=== PATIENT | male | born 1960 | race Caucasian/White ===

== ENCOUNTER → 2021-10-06 02:54 | Outpatient (CLI) | payer MEDICARE, OTHER, SELFPAY ==
[2021-10-06 12:07] LABS: SARS-CoV-2 RNA PCR Positive
== END ==
PROVIDERS: PCP Nurse Practitioner; Visit Provider Nurse Practitioner
DX: U07.1 COVID-19 (principal)
CPT/HCPCS: C9803; U0003; U0005

== ENCOUNTER 2021-10-30 13:43 | Outpatient (CLI) | payer MEDICARE, OTHER, SELFPAY ==
[2021-10-30 20:29] LABS: Free T4 Free Thyroxine 1.02 ng/mL (0.78-2.19)
[2021-10-30 20:40] LABS: Thyroid Stimulating Hormone 0.115 uIU/mL (0.465-4.680)
== END 2021-10-30 13:44 | disposition home or self-care (01) ==
LOC: ANHGOSHLAB 13:47
PROVIDERS: PCP Internal Medicine; Visit Provider Clinical Nurse Specialist
DX: E03.9 Hypothyroidism, unspecified (principal)
CPT/HCPCS: 36415; 84439; 84443

== ENCOUNTER 2021-12-15 12:40 | Outpatient (CLI) | payer MEDICARE, OTHER, SELFPAY ==
[2021-12-15 20:16] LABS: Thyroid Stimulating Hormone 0.259 uIU/mL (0.465-4.680)
== END 2021-12-15 12:41 | disposition home or self-care (01) ==
PROVIDERS: PCP Internal Medicine; Visit Provider Clinical Nurse Specialist
DX: E03.9 Hypothyroidism, unspecified (principal)
CPT/HCPCS: 36415; 84443

== ENCOUNTER 2022-02-13 15:10 | Outpatient (CLI) | payer MEDICARE, OTHER, SELFPAY ==
[2022-02-13 17:18] LABS: Creatinine Urine 90.6 mg/dL
[2022-02-13 17:22] LABS: Hemoglobin A1C 5.9 % (<5.7)
[2022-02-13 17:25] LABS: MALB Creatinine Ratio < 6.6 mg/g (0-30); Microalbumin Urine Random < 6.0 mg/L (0-16.7)
[2022-02-13 17:32] LABS: Free T4 Free Thyroxine 0.81 ng/mL (0.78-2.19)
== END 2022-02-13 15:11 | disposition home or self-care (01) ==
LOC: ANHWCLAB 15:13
PROVIDERS: PCP Internal Medicine; Visit Provider Internal Medicine Endocrinology, Diabetes & Metabolism
DX: E03.9 Hypothyroidism, unspecified (principal); E11.9 Type 2 diabetes mellitus without complications
CPT/HCPCS: 36415; 82043; 83036; 84439; 84443

== ENCOUNTER 2022-03-20 12:00 | Outpatient (CLI) | payer MEDICARE, OTHER, SELFPAY ==
[2022-03-20 18:03] LABS: Thyroid Stimulating Hormone 0.018 uIU/mL (0.465-4.680)
[2022-03-20 19:54] LABS: Free T4 Free Thyroxine 2.19 ng/mL (0.78-2.19)
== END 2022-03-20 12:01 | disposition home or self-care (01) ==
LOC: ANHWCLAB 12:03
PROVIDERS: PCP Internal Medicine; Visit Provider Internal Medicine Endocrinology, Diabetes & Metabolism
DX: E03.9 Hypothyroidism, unspecified (principal)
CPT/HCPCS: 36415; 84439; 84443

== ENCOUNTER 2022-04-26 09:27 | Outpatient (CLI) | payer MEDICARE, OTHER, SELFPAY ==
[2022-04-26 20:19] LABS: Thyroid Stimulating Hormone < 0.015 uIU/mL (0.465-4.680)
[2022-04-26 20:41] LABS: Free T4 Free Thyroxine 1.95 ng/mL (0.78-2.19)
== END 2022-04-26 09:28 | disposition home or self-care (01) ==
LOC: ANHGOSHLAB 09:29
PROVIDERS: PCP Internal Medicine; Referring Provider Internal Medicine Endocrinology, Diabetes & Metabolism; Visit Provider Clinical Nurse Specialist
DX: E03.9 Hypothyroidism, unspecified (principal); E78.5 Hyperlipidemia, unspecified
CPT/HCPCS: 36415; 84439; 84443

== ENCOUNTER 2022-05-28 12:34 | Outpatient (CLI) | payer MEDICARE, OTHER, SELFPAY ==
[2022-05-28 20:36] LABS: Free T4 Free Thyroxine 1.51 ng/mL (0.78-2.19)
[2022-05-28 21:05] LABS: Thyroid Stimulating Hormone 0.838 uIU/mL (0.465-4.680)
== END 2022-05-28 12:35 | disposition home or self-care (01) ==
LOC: ANHGOSHLAB 12:40
PROVIDERS: PCP Internal Medicine; Visit Provider Internal Medicine Endocrinology, Diabetes & Metabolism
DX: E03.9 Hypothyroidism, unspecified (principal); E78.5 Hyperlipidemia, unspecified
CPT/HCPCS: 36415; 84439; 84443

== ENCOUNTER 2022-06-20 09:31 | Outpatient (CLI) | payer MEDICARE, OTHER, SELFPAY ==
[2022-06-20 18:57] LABS: Free T4 Free Thyroxine 1.46 ng/mL (0.78-2.19)
[2022-06-20 19:33] LABS: Anion Gap 6 mmol/L (8-16); Blood Urea Nitrogen 18 mg/dL (9-20); Carbon Dioxide 28 mmol/L (22-30); Chloride 103 mmol/L (98-107); Cholesterol 183 mg/dL (0-200); Estimated Glomerular Filt Rate > 60; Glucose 149 mg/dL (65-110); HDL Direct 61 mg/dL; Sodium 137 mmol/L (137-145); Triglycerides 189 mg/dL (<150)
[2022-06-20 19:44] LABS: LDL Cholesterol Direct 87 mg/dL
== END 2022-06-20 09:32 | disposition home or self-care (01) ==
LOC: ANHGOSHLAB 09:34
PROVIDERS: PCP Internal Medicine; Visit Provider Internal Medicine Endocrinology, Diabetes & Metabolism
DX: E03.9 Hypothyroidism, unspecified (principal); E11.9 Type 2 diabetes mellitus without complications
CPT/HCPCS: 36415; 80048; 80061; 84439; 84443

== ENCOUNTER 2022-12-24 10:23 | Outpatient (CLI) | payer MEDICARE, OTHER, SELFPAY ==
[2022-12-24 19:35] LABS: Microalbumin Urine Random 24.9 mg/L (0-16.7)
[2022-12-24 19:52] LABS: Creatinine Urine 363.7 mg/dL; MALB Creatinine Ratio 6.8 mg/g (0-30)
[2022-12-24 19:59] LABS: Alanine Aminotransferase 55 U/L (6-50); Albumin Level 4.3 g/dL (3.5-5.1); Alkaline Phosphatase 61 U/L (38-126); Anion Gap 5 mmol/L (8-16); Aspartate Amino Transferase 85 U/L (17-59); Bilirubin,Total 1.1 mg/dL (0.2-1.3); Blood Urea Nitrogen 16 mg/dL (9-20); Calcium 9.2 mg/dL (8.4-10.2); Carbon Dioxide 30 mmol/L (22-30); Chloride 100 mmol/L (98-107); Cholesterol 188 mg/dL (0-200); Estimated Glomerular Filt Rate > 60; Glucose 157 mg/dL (65-110); HDL Direct 58 mg/dL; Potassium 4.4 mmol/L (3.4-5.0); Sodium 135 mmol/L (137-145); Triglycerides 229 mg/dL (<150)
[2022-12-24 20:02] LABS: Free T4 Free Thyroxine 1.55 ng/mL (0.78-2.19)
[2022-12-24 20:06] LABS: Prostate Specific Antigen 0.3 ng/mL (< OR = 4.0)
[2022-12-24 20:10] LABS: LDL Cholesterol Direct 91 mg/dL
== END 2022-12-24 10:24 | disposition home or self-care (01) ==
LOC: ANHGOSHLAB 10:26
PROVIDERS: Nurse Practitioner; PCP Internal Medicine; Visit Provider Internal Medicine Endocrinology, Diabetes & Metabolism
DX: E03.9 Hypothyroidism, unspecified (principal); E11.9 Type 2 diabetes mellitus without complications; E78.5 Hyperlipidemia, unspecified; Z12.5 Encounter for screening for malignant neoplasm of prostate
CPT/HCPCS: 36415; 80053; 80061; 82043; 84153; 84439; 84443; G0103

== ENCOUNTER 2023-02-20 02:11 | Day surgery (SDC) | payer MEDICARE, OTHER, SELFPAY ==
[2023-02-05 14:51] VITALS: BMI 43.9
--- NOTE | 2023-02-18 09:19 | SUR.PREOP ---
Patient called regarding upcoming procedure. Reviewed preop instructions, appointment times, and procedure prep.
--- NOTE | 2023-02-19 13:26 | PM.HPGS ---
History of Present Illness History of Present Illness Consent: Risks, benefits, and alternatives have been discussed and questions answered. Patient agrees to proceed with procedure. Chief complaint: hx colon polyps Narrative: Wally Hankins is a 62 year old male with history of colon polyps. He has had a polyp removed on his 2 last procedures were. His last colonoscopy was 5 years ago. Review of Systems Review of Systems: All systems reviewed & are unremarkable except as noted in HPI and below PMFSH Past Medical History Medical History Anal disorder Arthritis Body mass index (BMI) 35 or more (07/29/18) Chronic bilateral low back pain with right-sided sciatica Chronic bronchitis Chronic pain Colon polyps Constipation Decreased libido Depression Dizziness Elevated ferritin Erectile dysfunction Essential hypertension Herniated disc Hyperlipidemia Hypertension Hypothyroidism Lumbar radiculopathy Lumbar spondylosis Morbid obesity Parapharyngeal abscess 10/08/2017 removed Polycythemia Rheumatism Stenosis (acquired) of bladder neck or vesicourethral orifice Transaminitis Type 2 diabetes mellitus Surgical History Surgical History H/O lumbar discectomy L4-L5 2002 Hx of tonsillectomy 1968 Family History Family History Mother CHF (congestive heart failure) Diabetes mellitus Hypertension Heart problem Depression Son CHF (congestive heart failure) Diabetes mellitus Sibling , brother CHF (congestive heart failure) COPD (chronic obstructive pulmonary disease) brother Asthma brother Diabetes mellitus Hypertension Depression Heart problem Grandparent Hypertension Heart problem Acute myocardial infarction Other Diabetes mellitus aunt Social History Social History Smoking packs per day: 1 Smoking cigarettes per day: 20.0 Years smoked: 6 Smoking pack-years: 6.00 Smoking status: Former smoker Tobacco type: cigarettes Alcohol intake: current Drinks per week: 30 Alcohol use details: 10 beers 3 days a week Substance use: current Substance use type: marijuana Other substance usage details: MMJ; 1-2 times daily Lack of Transportation: No Lack of Food: Never True Current Housing: I Have Housing Concerned About Future Housing: No Difficulty Paying Gas/Electric Bills: No Difficulty Paying for Meds: No Currently Unemployed: No Education: High School Diploma/GED Difficulty w/ Childcare or Family Care: No Living arrangements: with family Occupation/Education: retired Spiritual care concerns: No Agree to blood products: Yes Meds Home Medications and Allergies Home Medications Medication Instructions Recorded Confirmed Type sildenafil 50 mg tablet 50 mg PO DAILY PRN sexual activity 05/08/21 02/20/23 Rx #10 tabs cannabidiol 100 mg/mL oral solution 10 mg PO DAILY PRN Pain 04/30/22 02/20/23 History triamcinolone acetonide 0.5 % 1 applic topical DAILY #15 grams 05/23/22 02/20/23 Rx topical cream valsartan 160 mg tablet 160 mg PO DAILY #90 tabs 10/31/22 02/20/23 Rx levothyroxine 150 mcg tablet 150 mcg PO DAILY #90 tabs 12/31/22 02/20/23 Rx Allergies Allergy/AdvReac Type Severity Reaction Status Date / Time fentanyl Allergy Unknown vomiting Verified 02/20/23 08:16 semaglutide [From Ozempic] Allergy Rash Verified 02/20/23 08:16 morphine AdvReac Severe GI UPSET Verified 02/20/23 08:16 empagliflozin AdvReac Unknown yeast Verified 02/20/23 08:16 [From Jardiance] infection metformin AdvReac Unknown Diarrhea Verified 02/20/23 08:16 Exam Const: General: alert Orientation/consciousness: patient oriented x3 Resp: Auscultation: clear to auscultation bilaterally Cardio: R
[2023-02-20 08:19] VITALS: BP 165/82; PULSE 72; RESP 18; TEMP 36.2; O2SAT 96
[2023-02-20] MEDS: LACTATED RINGERS 1,000 ML 150 ML IV CONT (08:25)
--- NOTE | 2023-02-20 08:58 | WPDANESEPPF ---
Anes - Initial Pre Proc Eval Procedure: Operation Date: 02/20/23 09:30 Proposed Procedures p Colonoscopy - Brian Carolina MD Date/Time: 02/20/23 08:58 Surgeon: Brian Carolina MD Pre Op Diagnosis: hx colon polyps Patient Data Age: 62 Gender: M Height: 1.88 m Weight: 155.6 kg Last Vital Signs Temp 97.2 F L 02/20/23 08:19 Pulse 72 02/20/23 08:19 Resp 18 02/20/23 08:19 BP 165/82 H 02/20/23 08:19 Pulse Ox 96 02/20/23 08:19 O2 Del Method Room Air 02/20/23 08:19 Allergies Allergy/AdvReac Type Severity Reaction Status Date / Time fentanyl Allergy Unknown vomiting Verified 02/20/23 08:16 semaglutide [From Ozempic] Allergy Rash Verified 02/20/23 08:16 morphine AdvReac Severe GI UPSET Verified 02/20/23 08:16 empagliflozin AdvReac Unknown yeast Verified 02/20/23 08:16 [From Jardiance] infection metformin AdvReac Unknown Diarrhea Verified 02/20/23 08:16 Home Medications Medication Instructions Recorded Confirmed Type sildenafil 50 mg tablet 50 mg PO DAILY PRN sexual activity 05/08/21 02/20/23 Rx #10 tabs cannabidiol 100 mg/mL oral solution 10 mg PO DAILY PRN Pain 04/30/22 02/20/23 History triamcinolone acetonide 0.5 % 1 applic topical DAILY #15 grams 05/23/22 02/20/23 Rx topical cream valsartan 160 mg tablet 160 mg PO DAILY #90 tabs 10/31/22 02/20/23 Rx levothyroxine 150 mcg tablet 150 mcg PO DAILY #90 tabs 12/31/22 02/20/23 Rx Patient hx anesthesia problems: none Family hx anesthesia problems: none Results Review: All pre-operative results and documents have been reviewed as part of the pre-operative evaluation. [facility] Past Medical History Medical History Anal disorder Arthritis Body mass index (BMI) 35 or more (07/29/18) Chronic bilateral low back pain with right-sided sciatica Chronic bronchitis Chronic pain Colon polyps Constipation Decreased libido Depression Dizziness Elevated ferritin Erectile dysfunction Essential hypertension Herniated disc Hyperlipidemia Hypertension Hypothyroidism Lumbar radiculopathy Lumbar spondylosis Morbid obesity Parapharyngeal abscess 10/08/2017 removed Polycythemia Rheumatism Stenosis (acquired) of bladder neck or vesicourethral orifice Transaminitis Type 2 diabetes mellitus Surgical History Surgical History H/O lumbar discectomy L4-L5 2002 Hx of tonsillectomy 1968 Family History Family History Mother CHF (congestive heart failure) Diabetes mellitus Hypertension Heart problem Depression Son CHF (congestive heart failure) Diabetes mellitus Sibling , brother CHF (congestive heart failure) COPD (chronic obstructive pulmonary disease) brother Asthma brother Diabetes mellitus Hypertension Depression Heart problem Grandparent Hypertension Heart problem Acute myocardial infarction Other Diabetes mellitus aunt Social History Social History Smoking packs per day: 1 Smoking cigarettes per day: 20.0 Years smoked: 6 Smoking pack-years: 6.00 Smoking status: Former smoker Tobacco type: cigarettes Alcohol intake: current Drinks per week: 30 Alcohol use details: 10 beers 3 days a week Substance use: current Substance use type: marijuana Other substance usage details: MMJ; 1-2 times daily Lack of Transportation: No Lack of Food: Never True Current Housing: I Have Housing Concerned About Future Housing: No Difficulty Paying Gas/Electric Bills: No Difficulty Paying for Meds: No Currently Unemployed: No Education: High School Diploma/GED Difficulty w/ Childcare or Family Care: No Living arrangements: with family Occupation/Education: retired Spiritual care concerns: No Agree to blood products:
[2023-02-20 09:41] VITALS: BP 127/69; PULSE 71; RESP 21; O2SAT 98
[2023-02-20 09:51] VITALS: BP 127/69; PULSE 69; RESP 20; O2SAT 98
[2023-02-20 09:58] VITALS: BP 139/82; PULSE 65; RESP 21; O2SAT 100
== END 2023-02-20 10:10 | disposition home or self-care (01) ==
PROVIDERS: PCP Internal Medicine; Visit Provider Internal Medicine Gastroenterology
PROC: 0DJD8ZZ Inspection of Lower Intestinal Tract, Via Natural or Artificial Opening Endoscopic (ICD-10-PCS; CPT 45378; principal; 2023-02-20 09:30)
DX: Z12.11 Encounter for screening for malignant neoplasm of colon (principal); K57.30 Diverticulosis of large intestine without perforation or abscess without bleeding; K64.8 Other hemorrhoids; Z86.010 Personal history of colon polyps; E78.5 Hyperlipidemia, unspecified; E03.9 Hypothyroidism, unspecified; E11.9 Type 2 diabetes mellitus without complications; E66.01 Morbid (severe) obesity due to excess calories; Z68.41 Body mass index [BMI] 40.0-44.9, adult; Z87.891 Personal history of nicotine dependence; F12.90 Cannabis use, unspecified, uncomplicated
CPT/HCPCS: G0105; J2704; J7120

== ENCOUNTER 2023-07-26 09:32 | Outpatient (CLI) | payer MEDICARE, OTHER, SELFPAY ==
[2023-07-26 19:37] LABS: Alanine Aminotransferase 52 U/L (6-50); Albumin Level 4.4 g/dL (3.5-5.1); Alkaline Phosphatase 70 U/L (38-126); Anion Gap 5 mmol/L (4-12); Aspartate Amino Transferase 70 U/L (17-59); Bilirubin,Total 0.9 mg/dL (0.2-1.3); Blood Urea Nitrogen 14 mg/dL (9-20); Calcium 9.2 mg/dL (8.4-10.2); Carbon Dioxide 29 mmol/L (22-30); Chloride 102 mmol/L (98-107); Cholesterol 182 mg/dL (0-200); Estimated Glomerular Filt Rate > 60; Glucose 123 mg/dL (65-110); HDL Direct 64 mg/dL; Potassium 4.5 mmol/L (3.4-5.0); Sodium 136 mmol/L (137-145); Triglycerides 150 mg/dL (<150)
[2023-07-26 19:47] LABS: Free T4 Free Thyroxine 1.53 ng/mL (0.78-2.19)
[2023-07-26 19:48] LABS: LDL Cholesterol Direct 92 mg/dL
== END 2023-07-26 09:33 | disposition home or self-care (01) ==
LOC: ANHGOSHLAB 09:34
PROVIDERS: PCP Internal Medicine; Visit Provider Internal Medicine Endocrinology, Diabetes & Metabolism
DX: E78.5 Hyperlipidemia, unspecified (principal); E66.01 Morbid (severe) obesity due to excess calories; E11.9 Type 2 diabetes mellitus without complications; E03.9 Hypothyroidism, unspecified
CPT/HCPCS: 36415; 80053; 80061; 84439; 84443

== ENCOUNTER 2024-01-12 01:56 | Emergency (ER) | payer MEDICARE, OTHER, SELFPAY ==
--- NOTE | ~2024-01-12 | CT_ITS ---
EXAMINATION: CT cervical spine wo con DATE: 01/12/2024 02:24 INDICATION: Trauma with head injury TECHNIQUE: Computed tomography (CT) of the cervical spine was performed without intravenous contrast. Automated exposure control and iterative reconstruction technique were employed. The dose-length pro duct was 514.82 mGy-cm. COMPARISON: None FINDINGS: 9 degrees cervical levocurvature. Mild reversal of the normal cervical lordosis. Moderate osteoarthri tis at the atlantoaxial articulation. Vertebral body heights are normal. No acute fracture. Severe di sc height loss with fusion across the bilateral uncovertebral joints at C6-C7. Moderate disc height l oss with severe bilateral uncovertebral osteoarthritis at C5-C6 and with minimal uncovertebral osteoa rthritis at C7-T1. Mild disc height loss at C2-C3 through C4-C5 with mild to moderate uncovertebral o steoarthritis. Severe facet osteoarthritis on the right at C2-C3 with multilevel mild to moderate ost eoarthritis throughout the remainder of the bilateral cervical facet joints. Posterior disc osteophyt e complexes contributing to mild to moderate central canal stenosis at both C5-6 and C6-C7. Multileve l mild bilateral cervical neural foraminal stenosis is prominent bilaterally at C5-C6 and on the righ t at C6-C7. Cervical soft tissues are unremarkable. IMPRESSION: 1. Moderate to severe cervical spondylosis. No acute osseous abnormality. Reviewed, dictated and finalized at location A. BBING MACHINE OPERATOR
--- NOTE | ~2024-01-12 | CT_ITS ---
EXAMINATION: CT brain wo con DATE: 01/12/2024 02:24 INDICATION: Head injury TECHNIQUE: Computed tomography (CT) of the head was performed without intravenous contrast. Sagittal and coronal reconstructions were performed. The mA was adjusted according to patient size. Iterative reconstruction technique was employed. The dose-length product was 832.33 mGy-cm. COMPARISON: head CT dated 10/03/2018 FINDINGS: No acute intracranial hemorrhage, acute infarction or abnormal extra axial fluid collection. Mild gen eralized cortical atrophy and mild scattered white matter hypoattenuation consistent with chronic sma ll vessel ischemic disease. Ventricles are normal and symmetric. No mass/mass effect. Mild mucosal th ickening in the bilateral ethmoid and right frontal sinuses. The orbits and mastoid air cells are nor mal. Intracranial calcified cerebral atherosclerosis is noted. IMPRESSION: 1. No acute intracranial process. 2. Chronic age-related changes including mild diffuse volume loss and mild scattered white matter hyp oattenuation consistent with chronic small vessel ischemic disease. Reviewed, dictated and finalized at location A. ER OPERATOR IMPRESSION: 1. No acute intracranial process. 2. Chronic age-related changes including mild diffuse volume loss and mild scat tered white matter hypoattenuation consistent with chronic small vessel ischemi c disease.
[2024-01-12 01:08] VITALS: BP 150/82; PULSE 82; RESP 13; TEMP 36.4; O2SAT 100
--- NOTE | 2024-01-12 02:00 | PC.NURSE ---
this patient has a abrasion to the right side of the face. md notified.
--- NOTE | 2024-01-12 02:04 | ED.GENADULT ---
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 The patient reports that he was drinking 12-15 beers this evening and also reports that he uses medical marijuana. Patient reports that he fell striking his head patient reports that he had some bleeding from his face. Related Data Home Medications Medication Instructions Recorded Confirmed cannabidiol 100 mg/mL oral solution 10 mg PO DAILY PRN Pain 04/30/22 12/09/23 Allergies Allergy/AdvReac Type Severity Reaction Status Date / Time fentanyl Allergy Unknown vomiting Verified 12/09/23 13:02 semaglutide [From Ozempic] Allergy Rash Verified 12/09/23 13:02 morphine AdvReac Severe GI UPSET Verified 12/09/23 13:02 empagliflozin AdvReac Unknown yeast Verified 12/09/23 13:02 [From Jardiance] infection metformin AdvReac Unknown Diarrhea Verified 12/09/23 13:02 Review of Systems Review of Systems: A 10 system review of systems was completed on the patient and is negative except for what is stated in the HPI. Nursing and ancillary documentation was reviewed. [facility] Past Medical History Medical History Anal disorder Arthritis Body mass index (BMI) 35 or more (07/29/18) Chronic bilateral low back pain with right-sided sciatica Chronic bronchitis Chronic pain Colon polyps Constipation Decreased libido Depression Dizziness Elevated ferritin Erectile dysfunction Essential hypertension Herniated disc Hyperlipidemia Hypertension Hypothyroidism Lumbar radiculopathy Lumbar spondylosis Morbid obesity Parapharyngeal abscess 10/08/2017 removed Polycythemia Rheumatism Stenosis (acquired) of bladder neck or vesicourethral orifice Transaminitis Type 2 diabetes mellitus Surgical History Surgical History H/O lumbar discectomy L4-L5 2002 Hx of tonsillectomy 1968 Family History Family History Mother CHF (congestive heart failure) Diabetes mellitus Hypertension Heart problem Depression Son CHF (congestive heart failure) Diabetes mellitus Sibling , brother CHF (congestive heart failure) COPD (chronic obstructive pulmonary disease) brother Asthma brother Diabetes mellitus Hypertension Depression Heart problem Grandparent Hypertension Heart problem Acute myocardial infarction Other Diabetes mellitus aunt Social History Social History Smoking packs per day: 1 Smoking cigarettes per day: 20.0 Years smoked: 6 Smoking pack-years: 6.00 Smoking status: Former smoker Tobacco type: cigarettes Alcohol intake: current Drinks per week: 30 Alcohol use details: 10 beers 3 days a week Substance use: current Substance use type: marijuana Other substance usage details: MMJ; 1-2 times daily Lack of Transportation: No Lack of Food: Never True Current Housing: I Have Housing Concerned About Future Housing: No Difficulty Paying Gas/Electric Bills: No Difficulty Paying for Meds: No Currently Unemployed: No Education: High School Diploma/GED Difficulty w/ Childcare or Family Care: No Living arrangements: with family Occupation/Education: retired Spiritual care concerns: No Agree to blood products: Yes Exam Narrative: GENERAL: Well-appearing, well-nourished, and in no acute distress. HEAD: Normocephalic, there is an abrasion present in the right forehead area/orbital area. EYES: PERRLA and EOMI. ENT: Nares clear, no rhinorrhea or epistaxis. Mucous membranes moist. NECK: Supple. CHEST: Clear to auscultation. No respiratory distress. HEART: Regular rate and rhythm. No murmur heard. Normal peripheral pulses. ABDOMEN: Soft, nontender, nondistended, normal active bowel sounds. EXTREMITIES: Normal range of motion. No edema. SKIN: Warm, dry, no rash. NEURO: No focal deficits. Alert and oriented x3. PSYCH: Normal mood and affect. Course Vital Signs Vital signs: Vital Signs Temperature 36.4 C 01/12/24 01:08 [employer] TE[employer]ER Pulse Rate 82 01/12/24 01:08 [employer] TE[employer]ER Respiratory Rate 13 01/12/24 01:08 [employer] TE[employer]ER Blood Pressure 150/82 H 01/12/24 01:08 E[employer] TEACHER Pulse Oximetry 100 01/12/24 01:08 [employer]MENTARY [employer] TEACHER Oxygen Delivery Room Air 01/12/24 01:08 [employer] TE[employer]ER Temperature 36.4 C 01/12/24 01:08 ELEMENTARY [employer] TE[employer]ER Pulse Rate 82 01/12/24 01:08 [employer]MENT[employer] TE[employer]ER Respiratory Rate 13 01/12/24 01:08 ELE[employer] TE[employer]ER Blood Pressure 150/82 H 01/12/24 01:08 ELEMENTARY [employer] TE[employer]ER Pulse Oximetry 100 01/12/24 01:08 ELE[employer] TEACHER Oxygen Delivery Room Air 01/12/24 01:08 [employer] TE[employer]ER Medical Decision Making MDM Narrative Medical decision making narrative: Differential diagnosis includes intracranial hemorrhage, cervical spine fracture, facial laceration Patient's face was cleaned up there is just superficial abrasions present. CT head CT C-spine showed no acute abnormality Vital Signs Vital Signs: Vital Signs Temperature 36.4 C 01/12/24 01:08 E[employer] TE[employer]ER Pulse Rate 82 01/12/24 01:08 E[employer] TE[employer]ER Respiratory Rate 13 01/12/24 01:08 ELE[employer] TEACHER Blood Pressure 150/82 H 01/12/24 01:08 ELEMENT[employer] TEACHER Pulse Oximetry 100 01/12/24 01:08 ELE[employer] TEACHER Oxygen Delivery Room Air 01/12/24 01:08 ELE[employer] TEACHER Temperature 36.4 C 01/12/24 01:08 ELEMENTARY [employer] MUS[employer] TEACHER Pulse Rate 82 01/12/24 01:08 ELE[employer] TEACHER Respiratory Rate 13 01/12/24 01:08 ELE[employer]ARY [employer] TEACHER Blood Pressure 150/82 H 01/12/24 01:08 ELE[employer]ARY [employer] MUS[employer] TEACHER Pulse Oximetry 100 01/12/24 01:08 ELE[employer] TE[employer]ER Oxygen Delivery Room Air 01/12/24 01:08 E[employer] TE[employer]ER Discharge Plan Discharge Clinical Impression: Fall from ground level, Head injury, Abrasion of face Patient Disposition: Home, Self-Care Condition: Stable Instructions: Antibiotic Form, Head Injury (ED), Abrasion (ED) Additional Instructions: Please avoid combining cannabis and alcohol Prescriptions: No Action triamcinolone acetonide 0.5 % cream 1 applic topical DAILY Qty: 15 1RF levothyroxine 150 mcg tablet 150 mcg PO DAILY Qty: 90 3RF sildenafil 50 mg tablet 50 mg PO DAILY PRN (Reason: sexual activity) Qty: 10 1RF Rx Instructions: administer 30 minutes to 4 hours before activity cannabidiol 100 mg/mL solution 10 mg PO DAILY PRN (Reason: Pain) Rx Instructions: MMJ valsartan 160 mg tablet 160 mg PO DAILY Qty: 90 1RF Follow-up/Referrals: Rc Qiu DO [Primary Care Provider] - Time of Disposition: 02:52
--- NOTE | 2024-01-12 02:59 | PC.NURSE ---
attempted to call patients , no answer.
--- NOTE | 2024-01-12 03:09 | PC.NURSE ---
cab called to transport this patient home. this patient was able to walk w/o any difficulties.
== END 2024-01-12 04:03 | disposition home or self-care (01) ==
PROVIDERS: Emergency Provider Emergency Medicine; PCP Internal Medicine
DX: S00.81XA Abrasion of other part of head, initial encounter (principal); I10 Essential (primary) hypertension; E11.9 Type 2 diabetes mellitus without complications; E78.5 Hyperlipidemia, unspecified; E03.9 Hypothyroidism, unspecified; E66.01 Morbid (severe) obesity due to excess calories; Z68.41 Body mass index [BMI] 40.0-44.9, adult; M19.90 Unspecified osteoarthritis, unspecified site; M79.0 Rheumatism, unspecified; Z86.0100 Personal history of colon polyps, unspecified; Z87.891 Personal history of nicotine dependence; Z79.899 Other long term (current) drug therapy; M47.812 Spondylosis without myelopathy or radiculopathy, cervical region; W19.XXXA Unspecified fall, initial encounter
CPT/HCPCS: 70450; 72125; 99284; L0140

== ENCOUNTER 2024-05-26 10:34 | Outpatient (CLI) | payer MEDICARE, BC, SELFPAY ==
--- OUTSIDE RECORDS SUMMARY | 2024-05-26 11:58 | XMS_ITS | Encounter Summary ---
Author Organization [facility] Address 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
--- OUTSIDE RECORDS SUMMARY | 2024-05-26 11:58 | XMS_ITS | Encounter Summary ---
Author Organization [facility] Address [address] [place] [address] Care Team Providers Care Market Research Consultant Name Role Phone Johnny Barahona DO Primary Care Provider Viridianaa ble Encounter Details Date Type Department Care Team (Late st Contact Info) Description 03/27/2001 Outpatient Historical [facility] Primary Care - [address] [place] [phone] Krzysztof Langston MD [address] [facility] [address] [address] Social History Tobacco Use Types Packs/Day Years Used Date Smoking Tobacco: Never Assessed Sex and Gender Information Value Date Recorded Sex Assigned at Not on file 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
--- OUTSIDE RECORDS SUMMARY | 2024-05-26 11:58 | XMS_ITS | Encounter Summary ---
Author Organization [facility] Address [address] [place] [address] Care Team Providers Care Credit Checker Name Role Phone Johnny Barahona DO Primary Care Provider Viridianaa ble Encounter Details Date Type Department Care Team (Late st Contact Info) Description 02/07/2000 Outpatient Historical [facility] Primary Care - [address] [place] [phone] Krzysztof Langston MD [address] [facility] [address] [address] Social History Tobacco Use Types Packs/Day Years Used Date Smoking Tobacco: Never Assessed Sex and Gender Information Value Date Recorded Sex Assigned at Not on file 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
--- OUTSIDE RECORDS SUMMARY | 2024-05-26 11:58 | XMS_ITS | Encounter Summary ---
Author Organization [facility] Address [address] [place] [address] Care Team Providers Care Investigation Division Captain Name Role Phone Johnny Barahona DO Primary Care Provider Viridianaa ble Encounter Details Date Type Department Care Team (Late st Contact Info) Description 12/24/2000 Outpatient Historical [facility] Primary Care - [address] [place] [phone] Krzysztof Langston MD [address] [facility] [address] [phone] Social History Tobacco Use Types Packs/Day Years Used Date Smoking Tobacco: Never Assessed Sex and Gender Information Value Date Recorded Sex Assigned at Not on file 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
--- OUTSIDE RECORDS SUMMARY | 2024-05-26 11:58 | XMS_ITS | Encounter Summary ---
Author Organization [facility] Address [address] [place] [address] Care Team Providers Care Station Mechanic Apprentice Name Role Phone Johnny Barahona DO Primary Care Provider Grover matute Encounter Details Date Type Department Care Team (Late st Contact Info) Description 12/19/2005 Orders Only [facility] Primary Care - [address] [place] [address] Krzysztof Langston MD [address] [facility] [address] [address] Social History Tobacco Use Types Packs/Day Years Used Date Smoking Tobacco: Never Assessed Sex and Gender Information Value Date Recorded Sex Assigned at Not on file 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 ALTERNATIVE PHONE NUMBER: [phone] SECTION 1: REQUESTED ACTION yoselyn 12/19/05 at 03:49 pm: MEDICATION REQUEST: MEDICATIONS: SYNTHROID ORAL TABLET 125 MCG, 1 Every Day, 90 Dispensed, 3 Fills, 30 Duration/Days Supply, status:CONTINUED, 12/19/2005. pt. requesting a refill; script in hub, and needs signature; .......pt. would like this mailed to his new address at [address] [place], [place] [address] [id number]............./camille DOCTOR`S RESPONSE: vivien 12/19/05 at 04:00 pm please schedule appt for pt to see me in Mar for PE. FINAL ACTION: glorialakishaora 12/19/05 at 04:04 pm Spoke with patient 12/19/05 at 04:04 pm. Booked appointment: pt. scheduled a PE for at 3:15pm did you still want to send pt. his rx? pt. also wants an rx for testosterone; but rx not in emr........./camille SECTION 2: DOCTOR`S RESPONSE: vivien 12/19/05 at 04:23 pm okay to send synthroid. find out what testosterone script he is on. BB SECTION 3: REQUESTED ACTION: mercy 12/19/05 at 04:32 pm using patches-gel he really doesn't like. wants to know if he can give himself inj at home or come into office...........irma DOCTOR`S RESPONSE: vivien 12/19/05 at 04:42 pm we can send out a vial if he can get a monthly injection at home. MEDICATIONS: DEPO-TESTOSTERONE INTRAMUSCULAR OIL 100 MG/ML VIALS, one ml IM q month, 1 Dispensed, 1 Fills, status: NEW PRESCRIPTION, 12/19/2005. FINAL ACTION: yoselyn 12/19/05 at 04:49 pm Spoke with patient 12/19/05 at 04:49 pm. mailed scripts to pt............./camille Electronically Signed by: Camille Colunga on Monday, December 19, 2005 documented in this encounter Plan of Treatment Not on file documented as of this encounter Visit Diagnoses Not on filedocumented in this encounter Care Teams Station Mechanic Apprentice Relationship Specialty Start Date End Date Johnny Barahona DO PCP - General Family Practice 12/09/12 documented as of this encounter
--- OUTSIDE RECORDS SUMMARY | 2024-05-26 11:58 | XMS_ITS | Encounter Summary ---
Author Organization [facility] Address [address] [place] [address] Care Team Providers Care Carbon Dioxide Operator Name Role Phone Johnny Barahona DO Primary Care Provider Viridianaa ble Encounter Details Date Type Department Care Team (Late st Contact Info) Description 10/15/2003 Outpatient Historical [facility] Primary Care - [address] [place] [address] Krzysztof Langston MD [address] [facility] [address] [address] Social History Tobacco Use Types Packs/Day Years Used Date Smoking Tobacco: Never Assessed Sex and Gender Information Value Date Recorded Sex Assigned at Not on file 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
--- OUTSIDE RECORDS SUMMARY | 2024-05-26 11:58 | XMS_ITS | Encounter Summary ---
Author Organization [facility] Address [address] [place] [address] Care Team Providers Care Show Design Supervisor Name Role Phone Johnny Barahona DO Primary Care Provider Viridianaa ble Encounter Details Date Type Department Care Team (Late st Contact Info) Description 06/19/2002 Outpatient Historical [facility] Primary Care - [address] [place] [address] Krzysztof Langston MD [address] [facility] [address] [address] Social History Tobacco Use Types Packs/Day Years Used Date Smoking Tobacco: Never Assessed Sex and Gender Information Value Date Recorded Sex Assigned at Not on file 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
--- OUTSIDE RECORDS SUMMARY | 2024-05-26 11:58 | XMS_ITS | Encounter Summary ---
Author Organization [facility] Address [address] [place] [address] Care Team Providers Care Corporate Intern Name Role Phone Johnny Barahona DO Primary Care Provider Unavaila ble Encounter Details Date Type Department Care Team (Late st Contact Info) Description 10/01/2003 Outpatient Historical [facility] Tariq MD [address] [facility] [facility] [address] [place] [address] MELENA, BLOOD IN STOOL (Primary Dx) Social History Tobacco Use Types Packs/Day Years Used Date Smoking Tobacco: Never Assessed Sex and Gender Information Value Date Recorded Sex Assigned at Not on file Legal Sex Male 4:19 AM HAND CROWN POUNCER Gender Identity Not on file Sexual Orientation Not on file documented as of this encounter Plan of Treatment Not on file documented as of this encounter Visit Diagnoses Diagnosis Blood in stool- Primary documented in this encounter Care Teams Corporate Intern Relationship Specialty Start Date End Date Johnny Barahona DO PCP - General Family Practice 12/09/12 documented as of this encounter
--- OUTSIDE RECORDS SUMMARY | 2024-05-26 11:58 | XMS_ITS | Encounter Summary ---
Author Organization [facility] Address [address] [place] [address] Care Team Providers Care Shallot Packer Name Role Phone Jhonny Barahona DO Primary Care Provider Viridianaa ble Encounter Details Date Type Department Care Team (Late st Contact Info) Description 10/22/2001 Outpatient Historical [facility] Primary Care - [address] [place] [address] Krzysztof Langston MD [address] [facility] [address] [address] Social History Tobacco Use Types Packs/Day Years Used Date Smoking Tobacco: Never Assessed Sex and Gender Information Value Date Recorded Sex Assigned at Not on file 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
--- OUTSIDE RECORDS SUMMARY | 2024-05-26 11:58 | XMS_ITS | Encounter Summary ---
Author Organization [facility] Address [address] [place] [address] Care Team Providers Care Internal Affairs Investigator Name Role Phone Johnny Barahona DO Primary Care Provider Viridianaa ble Encounter Details Date Type Department Care Team (Late st Contact Info) Description 02/28/[address] 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
--- OUTSIDE RECORDS SUMMARY | 2024-05-26 11:58 | XMS_ITS | Encounter Summary ---
Author Organization [facility] Address [address] [place] [address] Care Team Providers Care Day Haul Youth Supervisor Name Role Phone Johnny Barahona DO Primary Care Provider Viridianaa ble Encounter Details Date Type Department Care Team (Late st Contact Info) Description 10/31/1999 Outpatient Historical [facility] Primary Care - [address] [place] [phone] Krzysztof Langston MD [address] 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
--- OUTSIDE RECORDS SUMMARY | 2024-05-26 11:58 | XMS_ITS | Encounter Summary ---
Author Organization [facility] Address [address] [place] [address] Care Team Providers Care Chemical Process Engineer Name Role Phone Johnny Barahona DO Primary Care Provider Grover matute Encounter Details Date Type Department Care Team (Latest Contact Info) Description 10/31/1999 Outpatient Historical [facility] Krzysztof Langston MD [address] [facility] [address] [address] Pain in joint, lower leg (Primary Dx) Social History Tobacco Use Types Packs/Day Years Used Date Smoking Tobacco: Never Assessed Sex and Gender Information Value Date Recorded Sex Assigned at Not on file 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
--- OUTSIDE RECORDS SUMMARY | 2024-05-26 11:58 | XMS_ITS | Encounter Summary ---
Author Organization [facility] Address 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
--- OUTSIDE RECORDS SUMMARY | 2024-05-26 11:58 | XMS_ITS | Encounter Summary ---
Author Organization [facility] Address [address] [place] [address] Care Team Providers Care Air Liaison And Special Staff Name Role Phone Johnny Barahona DO Primary Care Provider Viridianaa ble Encounter Details Date Type Department Care Team (Late st Contact Info) Description 09/28/2003 Outpatient Historical [facility] Primary Care - [address] [place] [address] Krzysztof Langston MD [address] [facility] [address] [address] Social History Tobacco Use Types Packs/Day Years Used Date Smoking Tobacco: Never Assessed Sex and Gender Information Value Date Recorded Sex Assigned at Not on file Legal Sex Male 4: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
--- OUTSIDE RECORDS SUMMARY | 2024-05-26 11:58 | XMS_ITS | Encounter Summary ---
Author Organization [facility] Address [address] [place] [address] Care Team Providers Care Cleaning Crew Member Name Role Phone Johnny Barahona DO Primary Care Provider Viridianaa ble Encounter Details Date Type Department Care Team (Late st Contact Info) Description 12/06/2004 Outpatient Historical [facility] Primary Care - [address] [place] [address] Krzysztof Langston MD [address] [facility] [address] [address] Social History Tobacco Use Types Packs/Day Years Used Date Smoking Tobacco: Never Assessed Sex and Gender Information Value Date Recorded Sex Assigned at Not on file 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
--- OUTSIDE RECORDS SUMMARY | 2024-05-26 11:58 | XMS_ITS | Encounter Summary ---
Author Organization [facility] Address [address] [place] [address] Care Team Providers Care Key Entry Operator Name Role Phone Johnny Barahona DO Primary Care Provider Viridianaa ble Encounter Details Date Type Department Care Team (Late st Contact Info) Description 07/13/2002 Outpatient Historical [facility] Primary Care - [address] [place] [address] Krzysztof Langston MD [address] [facility] [address] [address] Social History Tobacco Use Types Packs/Day Years Used Date Smoking Tobacco: Never Assessed Sex and Gender Information Value Date Recorded Sex Assigned at Not on file 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
--- OUTSIDE RECORDS SUMMARY | 2024-05-26 11:58 | XMS_ITS | Encounter Summary ---
Author Organization [facility] Address [address] [place] [address] Care Team Providers Care Senior Enlisted Advisor Name Role Phone Johnny Barahona DO Primary Care Provider Viridianaa ble Encounter Details Date Type Department Care Team (Late st Contact Info) Description 01/31/2004 Outpatient Historical [facility] Primary Care - [address] [place] [address] Krzysztof Langston MD [address] [facility] [address] [address] Social History Tobacco Use Types Packs/Day Years Used Date Smoking Tobacco: Never Assessed Sex and Gender Information Value Date Recorded Sex Assigned at Not on file 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
--- OUTSIDE RECORDS SUMMARY | 2024-05-26 11:58 | XMS_ITS | Encounter Summary ---
Author Organization [facility] Address [address] [place] [address] Care Team Providers Care Nurse Leader Name Role Phone Johnny Barahona DO Primary Care Provider Viridianaa ble Encounter Details Date Type Department Care Team (Late st Contact Info) Description 10/01/2000 Outpatient Historical [facility] Primary Care - [address] [place] [address] Krzysztof Langston MD [address] [facility] [address] [address] Social History Tobacco Use Types Packs/Day Years Used Date Smoking Tobacco: Never Assessed Sex and Gender Information Value Date Recorded Sex Assigned at Not on file 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
--- OUTSIDE RECORDS SUMMARY | 2024-05-26 11:58 | XMS_ITS | Encounter Summary ---
Author Organization [facility] Address [address] [place] [address] Care Team Providers Care Inspector Water Pollution Control Name Role Phone Johnny Barahona DO Primary Care Provider Viridianaa ble Encounter Details Date Type Department Care Team (Late st Contact Info) Description 07/08/2001 Outpatient Historical [facility] Primary Care - [address] [place] [address] Krzysztof Langston MD [address] [facility] [address] [address] Social History Tobacco Use Types Packs/Day Years Used Date Smoking Tobacco: Never Assessed Sex and Gender Information Value Date Recorded Sex Assigned at Not on file 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
--- OUTSIDE RECORDS SUMMARY | 2024-05-26 11:58 | XMS_ITS | Encounter Summary ---
Author Organization [facility] Address [address] [place] [address] Care Team Providers Care Quality Process Lead Name Role Phone Johnny Barahona DO Primary Care Provider Viridianaa ble Encounter Details Date Type Department Care Team (Late st Contact Info) Description 06/04/2000 Outpatient Historical [facility] Primary Care - [address] [place] [address] Krzysztof Langston MD [address] 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
--- OUTSIDE RECORDS SUMMARY | 2024-05-26 11:58 | XMS_ITS | Encounter Summary ---
Author Organization [facility] Address [address] [place] [address] Care Team Providers Care Applied Behavior Specialist Name Role Phone Johnny Barahona DO Primary Care Provider Viridianaa ble Encounter Details Date Type Department Care Team (Late st Contact Info) Description 07/03/2001 Outpatient Historical [facility] Primary Care - [address] [place] [address] Krzysztof Langston MD [address] [facility] [address] [address] Social History Tobacco Use Types Packs/Day Years Used Date Smoking Tobacco: Never Assessed Sex and Gender Information Value Date Recorded Sex Assigned at Not on file 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
--- OUTSIDE RECORDS SUMMARY | 2024-05-26 11:58 | XMS_ITS | Encounter Summary ---
Author Organization [facility] Address [address] [place] [address] Care Team Providers Care Cartridge Filler Name Role Phone Johnny Barahona DO Primary Care Provider Viridianaa ble Encounter Details Date Type Department Care Team (Late st Contact Info) Description 01/23/2001 Outpatient Historical [facility] Primary Care - [address] [place] [address] Krzysztof Langston MD [address] [facility] [address] [address] Social History Tobacco Use Types Packs/Day Years Used Date Smoking Tobacco: Never Assessed Sex and Gender Information Value Date Recorded Sex Assigned at Not on file 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
--- OUTSIDE RECORDS SUMMARY | 2024-05-26 11:58 | XMS_ITS | Encounter Summary ---
Author Organization [facility] Address [address] [place] [address] Care Team Providers Care Publishing Editor Name Role Phone Johnny Barahona DO Primary Care Provider Viridianaa ble Encounter Details Date Type Department Care Team (Late st Contact Info) Description 02/24/2001 Outpatient Historical [facility] Primary Care - [address] [place] [address] Krzysztof Langston MD [address] [facility] [address] [address] Social History Tobacco Use Types Packs/Day Years Used Date Smoking Tobacco: Never Assessed Sex and Gender Information Value Date Recorded Sex Assigned at Not on file 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
--- OUTSIDE RECORDS SUMMARY | 2024-05-26 11:58 | XMS_ITS | Encounter Summary ---
Author Organization [facility] Address [address] [place] [address] Care Team Providers Care Phonograph Cartridge Assembler Name Role Phone Johnny Barahona DO Primary Care Provider Viridianaa ble Encounter Details Date Type Department Care Team (Late st Contact Info) Description 06/02/2004 Outpatient Historical [facility] Primary Care - [address] [place] [address] Krzysztof Langston MD [address] [facility] [address] [address] Social History Tobacco Use Types Packs/Day Years Used Date Smoking Tobacco: Never Assessed Sex and Gender Information Value Date Recorded Sex Assigned at Not on file 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
--- OUTSIDE RECORDS SUMMARY | 2024-05-26 11:58 | XMS_ITS | Encounter Summary ---
Author Organization [facility] Address [address] [place] [address] Care Team Providers Care Audit Machine Operator Name Role Phone Johnny Barahona DO Primary Care Provider Viridianaa ble Encounter Details Date Type Department Care Team (Latest Contact Info) Description 01/30/2005 Outpatient Historical [facility] Krzysztof Langston MD [address] [facility] [address] [address] ABDOMINAL PAIN UNSPEC SITE (Primary Dx) Social History Tobacco Use Types Packs/Day Years Used Date Smoking Tobacco: Never Assessed Sex and Gender Information Value Date Recorded Sex Assigned at Not on file Legal Sex Male 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
--- OUTSIDE RECORDS SUMMARY | 2024-05-26 11:58 | XMS_ITS | Encounter Summary ---
Author Organization [facility] Address [address] [place] [address] Care Team Providers Care Reservoir Engineering Advisor Name Role Phone Johnny Barahona DO Primary Care Provider Viridianaa ble Encounter Details Date Type Department Care Team (Late st Contact Info) Description 08/16/2003 Outpatient Historical [facility] Primary Care - [address] [place] [address] Krzysztof Langsotn MD [address] [facility] [address] [address] Social History Tobacco Use Types Packs/Day Years Used Date Smoking Tobacco: Never Assessed Sex and Gender Information Value Date Recorded Sex Assigned at Not on file Legal Sex Male 4:19 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
--- OUTSIDE RECORDS SUMMARY | 2024-05-26 11:58 | XMS_ITS | Encounter Summary ---
Author Organization [facility] Address [address] [place] [address] Care Team Providers Care Radiation Oncology Manager Name Role Phone Johnny Barahona DO Primary Care Provider Viridianaa ble Encounter Details Date Type Department Care Team (Late st Contact Info) Description 04/05/2000 Outpatient Historical [facility] Primary Care - [address] [place] [address] Krzysztof Langston MD [address] [facility] [address] [address] Social History Tobacco Use Types Packs/Day Years Used Date Smoking Tobacco: Never Assessed Sex and Gender Information Value Date Recorded Sex Assigned at Not on file Legal Sex Male 4:19 AM OUTREACH CONSULTANT Gender Identity Not on file Sexual Orientation Not on file documented as of this encounter Plan of Treatment Not on file documented as of this encounter Visit Diagnoses Not on filedocumented in this encounter Care Teams Radiation Oncology Manager Relationship Specialty Start Date End Date Johnny Barahona DO PCP - General Family Practice 12/09/12 documented as of this encounter
--- OUTSIDE RECORDS SUMMARY | 2024-05-26 11:58 | XMS_ITS | Encounter Summary ---
Author Organization [facility] Address [address] [place] [address] Care Team Providers Care Concrete Bucket Unloader Name Role Phone Johnny Barahona DO Primary Care Provider Viridianaa ble Encounter Details Date Type Department Care Team (Late st Contact Info) Description 09/15/2003 Outpatient Historical [facility] Primary Care - [address] [place] [address] Krzysztof Langston MD [address] [facility] [address] [address] Social History Tobacco Use Types Packs/Day Years Used Date Smoking Tobacco: Never Assessed Sex and Gender Information Value Date Recorded Sex Assigned at Not on file 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
--- OUTSIDE RECORDS SUMMARY | 2024-05-26 11:58 | XMS_ITS | Encounter Summary ---
Author Organization [facility] Address [address] [place] [address] Care Team Providers Care Airline Manager Name Role Phone Johnny Barahona DO Primary Care Provider Viridianaa ble Encounter Details Date Type Department Care Team (Late st Contact Info) Description 01/03/2004 Outpatient Historical [facility] Primary Care - [address] [place] [address] Krzysztof Langston MD [address] [facility] [address] [address] Social History Tobacco Use Types Packs/Day Years Used Date Smoking Tobacco: Never Assessed Sex and Gender Information Value Date Recorded Sex Assigned at Not on file Legal Sex Male 4:19 AM METER AND REGULATOR SHOP SUPERVISOR Gender Identity Not on file Sexual Orientation Not on file documented as of this encounter Plan of Treatment Not on file documented as of this encounter Visit Diagnoses Not on filedocumented in this encounter Care Teams Airline Manager Relationship Specialty Start Date End Date Johnny Barahona DO PCP - General Family Practice 12/09/12 documented as of this encounter
--- OUTSIDE RECORDS SUMMARY | 2024-05-26 11:58 | XMS_ITS | Encounter Summary ---
Author Organization [facility] Address [address] [place] [address] Care Team Providers Care Telehealth Nurse Educator Name Role Phone Johnny Barahona DO Primary Care Provider Viridianaa ble Encounter Details Date Type Department Care Team (Late st Contact Info) Description 02/03/2002 Outpatient Historical [facility] Primary Care - [address] [place] [address] Krzysztof Langston MD [address] [facility] [address] [address] Social History Tobacco Use Types Packs/Day Years Used Date Smoking Tobacco: Never Assessed Sex and Gender Information Value Date Recorded Sex Assigned at Not on file Legal Sex Male 4:19 AM RATE SUPERVISOR Gender Identity Not on file Sexual Orientation Not on file documented as of this encounter Plan of Treatment Not on file documented as of this encounter Visit Diagnoses Not on filedocumented in this encounter Care Teams Telehealth Nurse Educator Relationship Specialty Start Date End Date Johnny Barahona DO PCP - General Family Practice 12/09/12 documented as of this encounter
--- OUTSIDE RECORDS SUMMARY | 2024-05-26 11:58 | XMS_ITS | Encounter Summary ---
Author Organization [facility] Address [address] [place] [address] Care Team Providers Care Metal Washing Machine Operator Name Role Phone Johnny Barahona DO Primary Care Provider Viridianaa ble Encounter Details Date Type Department Care Team (Late st Contact Info) Description 03/24/2001 Outpatient Historical [facility] Primary Care - [address] [place] [address] Krzysztof Langston MD [address] [facility] [address] [address] Social History Tobacco Use Types Packs/Day Years Used Date Smoking Tobacco: Never Assessed Sex and Gender Information Value Date Recorded Sex Assigned at Not on file Legal Sex Male 4:19 AM WAREHOUSE LOGISTICS COORDINATOR Gender Identity Not on file Sexual Orientation Not on file documented as of this encounter Plan of Treatment Not on file documented as of this encounter Visit Diagnoses Not on filedocumented in this encounter Care Teams Metal Washing Machine Operator Relationship Specialty Start Date End Date Johnny Barahona DO PCP - General Family Practice 12/09/12 documented as of this encounter
--- OUTSIDE RECORDS SUMMARY | 2024-05-26 11:58 | XMS_ITS | Encounter Summary ---
Author Organization [facility] Address [address] [place] [address] Care Team Providers Care Medical Claims Processor Name Role Phone Johnny Barahona DO Primary Care Provider Viridianaa ble Encounter Details Date Type Department Care Team (Late st Contact Info) Description 06/03/2001 Outpatient Historical [facility] Primary Care - [address] [place] [address] Krzysztof Langston MD [address] [facility] [address] [address] Social History Tobacco Use Types Packs/Day Years Used Date Smoking Tobacco: Never Assessed Sex and Gender Information Value Date Recorded Sex Assigned at Not on file Legal Sex Male 4:19 AM BIOLOGICAL INSPECTOR Gender Identity Not on file Sexual Orientation Not on file documented as of this encounter Plan of Treatment Not on file documented as of this encounter Visit Diagnoses Not on filedocumented in this encounter Care Teams Medical Claims Processor Relationship Specialty Start Date End Date Johnny Barahona DO PCP - General Family Practice 12/09/12 documented as of this encounter
--- OUTSIDE RECORDS SUMMARY | 2024-05-26 11:58 | XMS_ITS | Encounter Summary ---
Author Organization [facility] Address [address] [place] [address] Care Team Providers Care Electron Microprobe Operator Name Role Phone Johnny Barahona DO Primary Care Provider Viridianaa ble Encounter Details Date Type Department Care Team (Late st Contact Info) Description 12/06/2004 Outpatient Historical [facility] Primary Care - [address] [place] [address] Krzysztof Langston MD [address] [facility] [address] [address] Social History Tobacco Use Types Packs/Day Years Used Date Smoking Tobacco: Never Assessed Sex and Gender Information Value Date Recorded Sex Assigned at Not on file 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
--- OUTSIDE RECORDS SUMMARY | 2024-05-26 11:58 | XMS_ITS | Encounter Summary ---
Author Organization [facility] [facility] Address [address] [place] [address] Care Team Providers Care Stain Maker Name Role Phone Johnny Barahona DO Primary Care Provider Grover matute Encounter Details Date Type Department Care Team (Latest Contact Info) Description 12/01/2002 Outpatient Historical [facility] PATIENT IN A BED Jean-Claude Sims MD [address] [place] [address] LUMBAR DISC DISPLACEMENT (Primary Dx) Social History Tobacco Use Types Packs/Day Years Used Date Smoking Tobacco: Never Assessed Sex and Gender Information Value Date Recorded Sex Assigned at Not on file Legal Sex Male 4:19 AM SOAP INSPECTOR Gender Identity Not on file Sexual Orientation Not on file documented as of this encounter Plan of Treatment Not on file documented as of this encounter Visit Diagnoses Diagnosis Displacement of lumbar intervertebral disc without myelopathy- Primary documented in this encounter Care Teams Stain Maker Relationship Specialty Start Date End Date Johnny Barahona DO PCP - General Family Practice 12/09/12 documented as of this encounter
--- OUTSIDE RECORDS SUMMARY | 2024-05-26 11:58 | XMS_ITS | Encounter Summary ---
Author Organization [facility] Address [address] [place] [address] Care Team Providers Care Coupon And Bond Collection Clerk Name Role Phone Johnny Barahona DO Primary Care Provider Grover matute Encounter Details Date Type Department Care Team (Latest Contact Info) Description 12/06/2004 Outpatient Historical [facility] Krzysztof Langston MD [address] [facility] [address] [address] BACKACHE NOS (Primary Dx) Social History Tobacco Use Types Packs/Day Years Used Date Smoking Tobacco: Never Assessed Sex and Gender Information Value Date Recorded Sex Assigned at Not on file Legal Sex Male 4:19 AM CAB STATION ATTENDANT Gender Identity Not on file Sexual Orientation Not on file documented as of this encounter Plan of Treatment Not on file documented as of this encounter Visit Diagnoses Diagnosis Backache, unspecified- Primary documented in this encounter Care Teams Coupon And Bond Collection Clerk Relationship Specialty Start Date End Date Johnny Barahona DO PCP - General Family Practice 12/09/12 documented as of this encounter
--- OUTSIDE RECORDS SUMMARY | 2024-05-26 11:58 | XMS_ITS | Encounter Summary ---
Author Organization [facility] Address [address] [place] [address] Care Team Providers Care Volunteer Specialist Name Role Phone Johnny Barahona DO Primary Care Provider Viridianaa ble Encounter Details Date Type Department Care Team (Late st Contact Info) Description 03/08/2003 Outpatient Historical [facility] Primary Care - [address] [place] [address] Krzysztof Langston MD [address] [facility] [address] [address] Social History Tobacco Use Types Packs/Day Years Used Date Smoking Tobacco: Never Assessed Sex and Gender Information Value Date Recorded Sex Assigned at Not on file Legal Sex Male 4:19 AM STUDENT ADMISSIONS CLERK Gender Identity Not on file Sexual Orientation Not on file documented as of this encounter Plan of Treatment Not on file documented as of this encounter Visit Diagnoses Not on filedocumented in this encounter Care Teams Volunteer Specialist Relationship Specialty Start Date End Date Johnny Barahona DO PCP - General Family Practice 12/09/12 documented as of this encounter
--- OUTSIDE RECORDS SUMMARY | 2024-05-26 11:58 | XMS_ITS | Encounter Summary ---
Author Organization [facility] Address [address] [address] Care Team Providers Care Trauma Program Manager Name Role Phone Johnny Barahona DO Primary Care Provider Viridianaa ble Encounter Details Date Type Department Care Team (Late st Contact Info) Description 08/04/2003 Outpatient Historical [facility] Primary Care - [address] [place] [address] Krzysztof Langston MD [address] [facility] [address] [address] Social History Tobacco Use Types Packs/Day Years Used Date Smoking Tobacco: Never Assessed Sex and Gender Information Value Date Recorded Sex Assigned at Not on file 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
--- OUTSIDE RECORDS SUMMARY | 2024-05-26 11:58 | XMS_ITS | Encounter Summary ---
Author Organization [facility] Address [address] [place] [address] Care Team Providers Care Cashier And Salesperson Name Role Phone Johnny Barahona DO Primary Care Provider Viridianaa ble Encounter Details Date Type Department Care Team (Late st Contact Info) Description 12/03/2003 Outpatient Historical [facility] Primary Care - [address] [place] [address] Krzysztof Langston MD [address] [facility] [address] [address] Social History Tobacco Use Types Packs/Day Years Used Date Smoking Tobacco: Never Assessed Sex and Gender Information Value Date Recorded Sex Assigned at Not on file Legal Sex Male 4:19 AM MAINTENANCE DIRECTOR Gender Identity Not on file Sexual Orientation Not on file documented as of this encounter Plan of Treatment Not on file documented as of this encounter Visit Diagnoses Not on filedocumented in this encounter Care Teams Cashier And Salesperson Relationship Specialty Start Date End Date Johnny Barahona DO PCP - General Family Practice 12/09/12 documented as of this encounter
--- OUTSIDE RECORDS SUMMARY | 2024-05-26 11:58 | XMS_ITS | Encounter Summary ---
Author Organization [facility] Address [address] [place] [address] Care Team Providers Care It Systems Engineer Name Role Phone Johnny Barahona DO Primary Care Provider Viridianaa ble Encounter Details Date Type Department Care Team (Late st Contact Info) Description 11/20/[address] 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
--- OUTSIDE RECORDS SUMMARY | 2024-05-26 11:58 | XMS_ITS | Encounter Summary ---
Author Organization [facility] Address [address] [place] [address] Care Team Providers Care Lamp Developer Name Role Phone Johnny Barahona DO Primary Care Provider Viridianaa ble Encounter Details Date Type Department Care Team (Late st Contact Info) Description 12/06/2004 Outpatient Historical [facility] Primary Care - [address] [place] [address] Krzysztof Langston MD [address] [facility] [address] [address] Social History Tobacco Use Types Packs/Day Years Used Date Smoking Tobacco: Never Assessed Sex and Gender Information Value Date Recorded Sex Assigned at Not on file 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
--- OUTSIDE RECORDS SUMMARY | 2024-05-26 11:58 | XMS_ITS | Clinical Summary ---
Author Organization [employer] [facility] Address [address] [place] [address] Phone Care Team Providers Care Small Wind Energy Installer Name Role Phone Johnny Barahona DO Primary Care Provider Unavaila ble Allergies Active Allergy Reactions Criticality Noted Date Comments No Known Allergies 06/02/2004 Medications levothyroxine 150 mcg Oral tablet Take 150 mcg by mouth daily elevator operator. Active TESTOSTERONE (AXIRON TRANSDERMAL) Apply 60 mg to skin as directed daily. Active escitalopram (LEXAPRO) 10 mg tablet Take 10 mg by mouth daily. Active hydrocortisone (ANUSOL-HC) 2.5 % Cream Insert by rectum 2 times daily as needed for Hemorrhoids. 30 Gram 1 12/24/2012 Active Active Problems Problem Noted Date Diagnosed Date Abdominal pain, generalized 01/26/2005 Routine general medical exam ination at a health care facility 12/06/2004 Pain in joint, lower leg 06/02/2004 Unspecified hypertrophic and atrophic condition of skin 06/02/2004 Lumbago 06/02/2004 Esophageal reflux 06/02/2004 Obesity, unspecified 06/02/2004 Unspecified hypothyroidism 06/02/2004 Nonspecific abnormal results of liver function s tudy 06/02/2004 Allergic rhinitis, cause unspecified 06/02/2004 Other malaise and fatigue 06/02/2004 Dermatophytosis of nail 06/02/2004 Impotence of organic origin 06/02/2004 Encounter for long-term (current) use of other m edications 06/02/2004 Conjunctivitis unspecified 06/02/2004 Pure hypercholesterolemia 06/02/2004 Backache, unspecified 06/02/2004 Multiple and unspecified ope n wound of upper limb, without mention of complication 06/02/2004 Abnormal weight gain 06/02/2004 Hemorrhage of rectum and anus 06/02/2004 Abdominal pain, unspecified site 06/02/2004 Immunizations Immunization Administration Dates Next Due (TDVAX)(7 YRS UP) TETANUS AN D DIPHTHERIA TOXOIDS, ADSORBED (2 LF OF TETANUS TOXOID AND 2 LF OF DIPHTHERIA TOXOID), 0.5ML (PF), IM 07/13/2002 Influenza Vaccine Split 3+ Yrs IM 12/09/2002 Family History Medical History Relation Name Comments Colon Polyps Brother Relation Name Status Comments Brother Social History Tobacco Use Types Packs/Day Years Used Date Smoking Tobacco: Former Cigarettes Q uit: 01/28/1978 Comments:Quit 1976 Alcohol Use Standard Drinks/Week Comments Yes 0 (1 standard drink = 0.6 oz pur e alcohol) 6-12 beers weekly Sex and Gender Information Value Date Recorded Sex Assigned at Not on file Legal Sex Male 4:19 AM REED REPAIRER Gender Identity Not on file Sexual Orientation Not on file Occupation Industry Job Start Date Job End Date Not on file Not on file Not on file Not on file Last Filed Vital Signs Vital Sign Reading Time Taken Comments Blood Pressure 125/78 02/04/2013 10:11 AM REED REPAIRER Pulse 6 02/04/2013 10:11 AM REED REPAIRER Temperature 36.9 C (98.4 F) 02/04/2013 10:01 AM REED REPAIRER Respiratory Rate 18 02/04/2013 10:11 AM REED REPAIRER Oxygen Saturation 96% 02/04/2013 10:11 AM REED REPAIRER Inhaled Oxygen Concentration - - Weight 158.8 kg (350 lb) 12/24/2012 2:48 PM CDT Height 189.2 cm (6' 2.5 ) 12/24/2012 2:48 PM CDT Body Mass Index 44.34 12/24/2012 2:48 PM CDT Plan of Treatment Health Maintenance Due Date Last Done Comments DTAP/TDAP/TD VACCINES (1 - Tdap) 07/14/2002 07/14/19 03 FIT-DNA Q 3 years 2004 FIT/FOBT Q 1 year 2004 Flex Sig/CT Colonography Q 5 years 2004 PNEUMOCOCCAL VACCINE 50+ YEA RS (1 of 1 - PCV) 2009 ZOSTER VACCINE (1 of 2) 2009 COLORECTAL SCREENING 02/04/2018 02/04/2013, 02/05/20 13 Colorectal Cancer Screening 02/04/2018 RSV VACCINE (60+ or ) (1 - Risk 60-74 years 1-dose series) 2019 INFLUENZA VACCINE (#1) 2023 12/09/2002 Insurance [place] [id number] [facility] [id number] Care Teams Small Wind Energy Installer Relationship Specialty Start Date End Date Johnny Braahona DO PCP - General Family Practice 12/09/12
--- OUTSIDE RECORDS SUMMARY | 2024-05-26 11:58 | XMS_ITS | Encounter Summary ---
Author Organization [facility] Address [address] [place] [address] Care Team Providers Care Monorail Car Operator Name Role Phone Johnny Barahona DO Primary Care Provider Viridianaa ble Encounter Details Date Type Department Care Team (Late st Contact Info) Description 12/03/2003 Outpatient Historical [facility] Primary Care - [address] [place] [phone] Krzysztof Langston MD [address] [facility] [address] [address] Social History Tobacco Use Types Packs/Day Years Used Date Smoking Tobacco: Never Assessed Sex and Gender Information Value Date Recorded Sex Assigned at Not on file Legal Sex Male 4:19 AM CUSTOMER CARE VOICE CONSULTANT Gender Identity Not on file Sexual Orientation Not on file documented as of this encounter Plan of Treatment Not on file documented as of this encounter Visit Diagnoses Not on filedocumented in this encounter Care Teams Monorail Car Operator Relationship Specialty Start Date End Date Johnny Barahona DO PCP - General Family Practice 12/09/12 documented as of this encounter
--- OUTSIDE RECORDS SUMMARY | 2024-05-26 11:58 | XMS_ITS | Encounter Summary ---
Author Organization [facility] Address [address] [place] [address] Care Team Providers Care Retort Pre Cooker Name Role Phone Johnny Barahona DO Primary Care Provider Viridianaa ble Encounter Details Date Type Department Care Team (Late st Contact Info) Description 07/02/2000 Outpatient Historical [facility] Primary Care - [address] [place] [phone] Krzysztof Langston MD [address] [facility] [address] [address] Social History Tobacco Use Types Packs/Day Years Used Date Smoking Tobacco: Never Assessed Sex and Gender Information Value Date Recorded Sex Assigned at Not on file Legal Sex Male 4:19 AM MANUFACTURING DIRECTOR Gender Identity Not on file Sexual Orientation Not on file documented as of this encounter Plan of Treatment Not on file documented as of this encounter Visit Diagnoses Not on filedocumented in this encounter Care Teams Retort Pre Cooker Relationship Specialty Start Date End Date Johnny Barahona DO PCP - General Family Practice 12/09/12 documented as of this encounter
--- OUTSIDE RECORDS SUMMARY | 2024-05-26 11:58 | XMS_ITS | Encounter Summary ---
Author Organization [facility] Address [address] [place] [address] Care Team Providers Care Bindery Operator Name Role Phone Johnny Barahona DO Primary Care Provider Viridianaa ble Encounter Details Date Type Department Care Team (Late st Contact Info) Description 09/01/2001 Outpatient Historical [facility] Primary Care - [address] [place] [phone] Krzysztof Langston MD [address] [facility] [address] [address] Social History Tobacco Use Types Packs/Day Years Used Date Smoking Tobacco: Never Assessed Sex and Gender Information Value Date Recorded Sex Assigned at Not on file 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
--- OUTSIDE RECORDS SUMMARY | 2024-05-26 11:59 | XMS_ITS | Encounter Summary ---
Author Organization [facility] Address [address] [place] [address] Care Team Providers Care Mule Driver Name Role Phone Johnny Barahona DO Primary Care Provider Viridianaa ble Encounter Details Date Type Department Care Team (Late st Contact Info) Description 11/13/2002 Outpatient Historical [facility] Primary Care - [address] [place] [phone] Krzysztof Langston MD [address] [facility] [address] [address] Social History Tobacco Use Types Packs/Day Years Used Date Smoking Tobacco: Never Assessed Sex and Gender Information Value Date Recorded Sex Assigned at Not on file 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
--- OUTSIDE RECORDS SUMMARY | 2024-05-26 11:59 | XMS_ITS | Encounter Summary ---
Author Organization [employer] Address 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
--- OUTSIDE RECORDS SUMMARY | 2024-05-26 11:59 | XMS_ITS | Clinical Summary ---
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 Gender Identity Not on file Sexual Orientation Not on file Plan of Treatment Health Maintenance Due Date Last Done Comments Hepatitis C Virus (HCV) Screening 1959 TdaP Immunization 1959 Colonoscopy 2004 Colorectal Cancer Screening 2004 Cologuard 2009 Immunochemical Fecal Occult Blood 2009 Zoster Immunization (1 of 2) 2009 PSA Discussion 2014 Pneumococcal Immunization (50+ years) (3 of 3 - PCV20 or PCV21) 01/05/2023 01/05/2018, 12/31/2016 Influenza Immunization (#1) 2023 09/0 10/2019, 12/02/2018, 01/05/2018, Additional history exists SARS-COV-2 Immunization ( season) 2023 Respiratory Syncytial Virus (RSV) Immunization (Adult) (1 - 1-dose 75+ series) 2034 Pneumococcal Immunization Combined Discontinued 01/05/2018, 12/31/2016 Hepatitis B Immunization Aged Out No longer eligible based on patient's age to complete this topic Meningococcal Immunization (ACWY) Aged Out No longer eligible based on patient's age to complete this topic Rotavirus Immunization Aged Out No lo nger eligible based on patient's age to complete this topic
--- OUTSIDE RECORDS SUMMARY | 2024-05-26 11:59 | XMS_ITS | Encounter Summary ---
Author Organization [facility] Address [address] [place] [address] Care Team Providers Care Audio/Visual Manager Name Role Phone Johnny Barahona DO Primary Care Provider Viridianaa ble Encounter Details Date Type Department Care Team (Late st Contact Info) Description 11/28/2001 Outpatient Historical [facility] Primary Care - [address] [place] [phone] Krzysztof Langston MD [address] [facility] [address] [address] Social History Tobacco Use Types Packs/Day Years Used Date Smoking Tobacco: Never Assessed Sex and Gender Information Value Date Recorded Sex Assigned at Not on file 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
--- OUTSIDE RECORDS SUMMARY | 2024-05-26 11:59 | XMS_ITS | Encounter Summary ---
Author Organization [employer] Address 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
--- OUTSIDE RECORDS SUMMARY | 2024-05-26 11:59 | XMS_ITS | Encounter Summary ---
Author Organization [employer] Address 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
[2024-05-26 13:25] LABS: Basophils Percent Auto 0.5 % (0.2-1.2); Eosinophils Absolute Auto 0.2 K/mm3 (0-0.3); Eosinophils Percent Auto 5.9 % (0-4.4); Hematocrit 51.1 % (42.0-52.0); Hemoglobin 17.2 g/dL (14.0-18.0); Immature Granulocyte Absolute 0.02 K/mm3 (0.00-0.031); Immature Granulocyte Percent A 0.5 % (0-0.5); Lymphocytes Absolute Auto 1.16 K/mm3 (0.9-3.2); Lymphocytes Percent Auto 28.3 % (18.3-44.2); Mean Corpuscular HGB Conc 33.7 g/dl (32-36); Mean Corpuscular Hemoglobin 33.9 pg (26-34); Mean Corpuscular Volume 100.6 fl (80-100); Mean Platelet Volume 8.1 fl (7.4-10.4); Monocytes Absolute Auto 0.5 K/mm3 (0.1-0.6); Neutrophils Absolute Auto 2.2 K/mm3 (1.3-6.7); Neutrophils Percent Auto 52.8 % (45.5-73.1); Platelet Count Result 147 k/mm3 (150-375); Red Blood Count 5.08 M/mm3 (4.6-6.20); Red Cell Distribution Width 13.1 % (11.5-14.5); White Blood Count 4.1 K/mm3 (4.5-10.0)
[2024-05-26 13:38] LABS: Alanine Aminotransferase 57 U/L (6-50); Albumin Level 4.1 g/dL (3.5-5.1); Alkaline Phosphatase 73 U/L (38-126); Anion Gap 6 mmol/L (4-12); Aspartate Amino Transferase 106 U/L (17-59); Bilirubin,Total 1.1 mg/dL (0.2-1.3); Blood Urea Nitrogen 14 mg/dL (9-20); Carbon Dioxide 31 mmol/L (22-30); Chloride 99 mmol/L (98-107); Cholesterol 185 mg/dL (0-200); Estimated Glomerular Filt Rate > 60; Glucose 157 mg/dL (65-110); HDL Direct 75 mg/dL; Potassium 4.5 mmol/L (3.4-5.0); Sodium 136 mmol/L (137-145); Triglycerides 191 mg/dL (<150)
[2024-05-26 13:49] LABS: LDL Cholesterol Direct 77 mg/dL
[2024-05-26 14:04] LABS: Prostate Specific Antigen 0.3 ng/mL (< OR = 4.0)
[2024-05-26 14:28] LABS: Creatinine Urine 241.4 mg/dL
[2024-05-26 14:38] LABS: MALB Creatinine Ratio 2.7 mg/g (0-30); Microalbumin Urine Random 6.5 mg/L (0-16.7)
[2024-05-26 18:41] LABS: Vitamin D 25 Hydroxy < 12.8 ng/mL
== END 2024-05-26 10:35 | disposition home or self-care (01) ==
PROVIDERS: Internal Medicine Endocrinology, Diabetes & Metabolism; PCP Internal Medicine; Visit Provider Nurse Practitioner
DX: E11.9 Type 2 diabetes mellitus without complications (principal); Z12.5 Encounter for screening for malignant neoplasm of prostate; E78.5 Hyperlipidemia, unspecified; I10 Essential (primary) hypertension; E66.01 Morbid (severe) obesity due to excess calories; E03.9 Hypothyroidism, unspecified; R79.89 Other specified abnormal findings of blood chemistry
CPT/HCPCS: 36415; 80053; 80061; 82043; 82306; 82607; 84153; 84439; 84443; 85025; G0103

== ENCOUNTER 2024-11-26 09:27 | Outpatient (CLI) | payer MEDICARE, SELFPAY ==
--- OUTSIDE RECORDS SUMMARY | 2024-11-26 09:54 | XMS_ITS | Encounter Summary ---
Author Organization [employer] Address 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
--- OUTSIDE RECORDS SUMMARY | 2024-11-26 09:54 | XMS_ITS | Encounter Summary ---
Author Organization [facility] Address [address] [place] [address] Care Team Providers Care Operations Inspector Name Role Phone Johnny Barahona DO Primary Care Provider Viridianaa ble Encounter Details Date Type Department Care Team (Late st Contact Info) Description 12/03/2003 Outpatient Historical [facility] Primary Care - [address] [place] [address] Krzysztof Langston MD [address] [facility] [address] [address] Social History Tobacco Use Types Packs/Day Years Used Date Smoking Tobacco: Never Assessed Sex and Gender Information Value Date Recorded Sex Assigned at Not on file 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
--- OUTSIDE RECORDS SUMMARY | 2024-11-26 09:54 | XMS_ITS | Encounter Summary ---
Author Organization [facility] Address [address] [place] [address] Care Team Providers Care Clinical Research Management Associate Name Role Phone Johnny Barahona DO Primary Care Provider Viridianaa ble Encounter Details Date Type Department Care Team (Late st Contact Info) Description 10/31/1999 Outpatient Historical [facility] Primary Care - [address] [place] [address] Krzysztof Langston MD [address] [facility] [address] [address] Social History Tobacco Use Types Packs/Day Years Used Date Smoking Tobacco: Never Assessed Sex and Gender Information Value Date Recorded Sex Assigned at Not on file 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
--- OUTSIDE RECORDS SUMMARY | 2024-11-26 09:54 | XMS_ITS | Encounter Summary ---
Author Organization [facility] Address [address] [place] [address] Care Team Providers Care Outpatient Coder Name Role Phone Johnny Barahona DO Primary Care Provider Viridianaa ble Encounter Details Date Type Department Care Team (Late st Contact Info) Description 09/15/2003 Outpatient Historical [facility] Primary Care - [address] [place] [address] Krzysztof Langston MD [address] 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
--- OUTSIDE RECORDS SUMMARY | 2024-11-26 09:54 | XMS_ITS | Encounter Summary ---
Author Organization [facility] Address [address] [place] [address] Care Team Providers Care Morphology Teacher Name Role Phone Johnny Barahona DO Primary Care Provider Viridianaa ble Encounter Details Date Type Department Care Team (Late st Contact Info) Description 11/20/2002 Outpatient Historical [facility] Primary Care - [address] [place] [address] Krzysztof Langston MD [address] [facility] [address] [address] Social History Tobacco Use Types Packs/Day Years Used Date Smoking Tobacco: Never Assessed Sex and Gender Information Value Date Recorded Sex Assigned at Not on file 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
--- OUTSIDE RECORDS SUMMARY | 2024-11-26 09:54 | XMS_ITS | Encounter Summary ---
Author Organization [facility] Address [address] [place] [address] Care Team Providers Care Farm Specialist Name Role Phone Johnny Barahona DO Primary Care Provider Viridianaa ble Encounter Details Date Type Department Care Team (Late st Contact Info) Description 09/28/2003 Outpatient Historical [facility] Primary Care - [address] [place] [address] Krzysztof Langston MD [address] [facility] [address] [address] Social History Tobacco Use Types Packs/Day Years Used Date Smoking Tobacco: Never Assessed Sex and Gender Information Value Date Recorded Sex Assigned at Not on file 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
--- OUTSIDE RECORDS SUMMARY | 2024-11-26 09:54 | XMS_ITS | Encounter Summary ---
Author Organization [facility] Address [address] [place] [address] Care Team Providers Care Shot Peening Operator Name Role Phone Johnny Barahona DO Primary Care Provider Viridianaa ble Encounter Details Date Type Department Care Team (Late st Contact Info) Description 08/16/2003 Outpatient Historical [facility] Primary Care - [address] [place] [address] Krzysztof Langston MD [address] [facility] [address] [address] Social History Tobacco Use Types Packs/Day Years Used Date Smoking Tobacco: Never Assessed Sex and Gender Information Value Date Recorded Sex Assigned at Not on file 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
--- OUTSIDE RECORDS SUMMARY | 2024-11-26 09:54 | XMS_ITS | Encounter Summary ---
Author Organization [facility] Address [address] [place] [address] Care Team Providers Care Director Of Curriculum And Instruction Name Role Phone Johnny Barahona DO Primary Care Provider Viridianaa ble Encounter Details Date Type Department Care Team (Late st Contact Info) Description 12/03/[address] 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
--- OUTSIDE RECORDS SUMMARY | 2024-11-26 09:54 | XMS_ITS | Encounter Summary ---
Author Organization [facility] Address 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
--- OUTSIDE RECORDS SUMMARY | 2024-11-26 09:54 | XMS_ITS | Encounter Summary ---
Author Organization [facility] Address [address] [place] [address] Care Team Providers Care Event Decorator Name Role Phone Johnny Barahona DO Primary Care Provider Viridianaa ble Encounter Details Date Type Department Care Team (Late st Contact Info) Description 10/15/2003 Outpatient Historical [facility] Primary Care - [address] [place] [address] Krzysztof Langston MD [address] [facility] [address] [address] Social History Tobacco Use Types Packs/Day Years Used Date Smoking Tobacco: Never Assessed Sex and Gender Information Value Date Recorded Sex Assigned at Not on file 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
--- OUTSIDE RECORDS SUMMARY | 2024-11-26 09:54 | XMS_ITS | Encounter Summary ---
Author Organization [facility] Address [address] [place] [address] Care Team Providers Care Assembler Truck Trailer Name Role Phone Johnny Barahona DO Primary Care Provider Viridianaa ble Encounter Details Date Type Department Care Team (Late st Contact Info) Description 08/04/2003 Outpatient Historical [facility] Primary Care - [address] [place] [address] Krzysztof Langston MD [address] [facility] [address] [address] Social History Tobacco Use Types Packs/Day Years Used Date Smoking Tobacco: Never Assessed Sex and Gender Information Value Date Recorded Sex Assigned at Not on file 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
--- OUTSIDE RECORDS SUMMARY | 2024-11-26 09:54 | XMS_ITS | Encounter Summary ---
Author Organization [facility] Address [address] [place] [address] Care Team Providers Care Invasive Manager Name Role Phone Johnny Barahona DO Primary Care Provider Viridianaa ble Encounter Details Date Type Department Care Team (Late st Contact Info) Description 06/02/2004 Outpatient Historical [facility] Primary Care - [address] [place] [address] Krzysztof Langston MD [address] [facility] [address] [address] Social History Tobacco Use Types Packs/Day Years Used Date Smoking Tobacco: Never Assessed Sex and Gender Information Value Date Recorded Sex Assigned at Not on file 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
--- OUTSIDE RECORDS SUMMARY | 2024-11-26 09:54 | XMS_ITS | Encounter Summary ---
Author Organization [facility] Address [address] [place] [address] Care Team Providers Care Curriculum Director Name Role Phone Johnny Barahona DO Primary Care Provider Viridianaa ble Encounter Details Date Type Department Care Team (Late st Contact Info) Description 02/28/2004 Outpatient Historical [facility] Primary Care - [address] [place] [address] Krzysztof Langston MD [address] [facility] [address] [address] Social History Tobacco Use Types Packs/Day Years Used Date Smoking Tobacco: Never Assessed Sex and Gender Information Value Date Recorded Sex Assigned at Not on file 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
--- OUTSIDE RECORDS SUMMARY | 2024-11-26 09:54 | XMS_ITS | Encounter Summary ---
Author Organization [facility] Address 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
--- OUTSIDE RECORDS SUMMARY | 2024-11-26 09:54 | XMS_ITS | Encounter Summary ---
Author Organization [facility] Address [address] [place] [address] Care Team Providers Care Pedigree Tracer Name Role Phone Johnny Barahona DO Primary Care Provider Viridianaa ble Encounter Details Date Type Department Care Team (Late st Contact Info) Description 03/08/2003 Outpatient Historical [facility] Primary Care - [address] [place] [address] Krzysztof Langtson MD [address] [facility] [address] [address] Social History Tobacco Use Types Packs/Day Years Used Date Smoking Tobacco: Never Assessed Sex and Gender Information Value Date Recorded Sex Assigned at Not on file Legal Sex Male 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
--- OUTSIDE RECORDS SUMMARY | 2024-11-26 09:54 | XMS_ITS | Encounter Summary ---
Author Organization [facility] Address [address] [place] [address] Care Team Providers Care Railroad Brake Operator Name Role Phone Johnny Barahona DO Primary Care Provider Viridianaa ble Encounter Details Date Type Department Care Team (Late st Contact Info) Description 01/31/2004 Outpatient Historical [facility] Primary Care - [address] [place] [address] Krzysztof Langston MD [address] [facility] [address] [address] Social History Tobacco Use Types Packs/Day Years Used Date Smoking Tobacco: Never Assessed Sex and Gender Information Value Date Recorded Sex Assigned at Not on file Legal Sex Male 4:19 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
--- OUTSIDE RECORDS SUMMARY | 2024-11-26 09:55 | XMS_ITS | Encounter Summary ---
Author Organization [facility] Address [address] [place] [address] Care Team Providers Care Linseed Oil Order Filler Name Role Phone Johnny Barahona DO Primary Care Provider Viridianaa ble Encounter Details Date Type Department Care Team (Late st Contact Info) Description 01/03/2004 Outpatient Historical [facility] Primary Care - [address] [place] [address] Krzysztof Langston MD [address] [facility] [address] [address] Social History Tobacco Use Types Packs/Day Years Used Date Smoking Tobacco: Never Assessed Sex and Gender Information Value Date Recorded Sex Assigned at Not on file 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
--- OUTSIDE RECORDS SUMMARY | 2024-11-26 09:55 | XMS_ITS | Encounter Summary ---
Author Organization [facility] Address [address] [place] [address] Care Team Providers Care State Archivist Name Role Phone Johnny Barahona DO Primary Care Provider Viridianaa giovani Encounter Details Date Type Department Care Team (Latest Contact Info) Description 01/30/2005 Outpatient Historical [facility] Krzysztof Langston MD [address] 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
--- OUTSIDE RECORDS SUMMARY | 2024-11-26 09:55 | XMS_ITS | Encounter Summary ---
Author Organization [facility] Address 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 ALTERNATIVE PHONE NUMBER: [phone] SECTION 1: REQUESTED ACTION yoselyn 12/19/05 at 03:49 pm: MEDICATION REQUEST: MEDICATIONS: SYNTHROID ORAL TABLET 125 MCG, 1 Every Day, 90 Dispensed, 3 Fills, 30 Duration/Days Supply, status:CONTINUED, 12/19/2005. pt. requesting a refill; script in hub, and needs signature; .......pt. would like this mailed to his new address at [address] [place], [place] [address] [id number]............./camille DOCTOR`S RESPONSE: vivien 12/19/05 at 04:00 pm please schedule appt for pt to see me in Mar for PE. FINAL ACTION: yoselyn 12/19/05 at 04:04 pm Spoke with patient [...] Fills, status: NEW PRESCRIPTION, 12/19/2005. FINAL ACTION: gloriadavid 12/19/05 at 04:49 pm Spoke with patient 12/19/05 at 04:49 pm. mailed scripts to pt............./camille Electronically Signed by: Camille Colunga on Monday, December 19, 2005 documented in this encounter Plan of Treatment Not on file documented as of this encounter Visit Diagnoses Not on filedocumented in this encounter Care Teams Manager Finance Relationship Specialty Start Date End Date Johnny Barahona DO PCP - General Family Practice 12/09/12 documented as of this encounter
--- OUTSIDE RECORDS SUMMARY | 2024-11-26 09:55 | XMS_ITS | Encounter Summary ---
Author Organization [facility] Address [address] [place] [address] Care Team Providers Care Skiver Sock Linings Name Role Phone Johnny Barahona DO Primary Care Provider Grover matute Encounter Details Date Type Department Care Team (Late st Contact Info) Description 11/03/2002 Outpatient Historical [facility] MRI DEPT Jean-Claude Sims MD [address] [facility] [place] [address] LUMBAR DISC DISPLACEMENT (Primary Dx) Social History Tobacco Use Types Packs/Day Years Used Date Smoking Tobacco: Never Assessed Sex and Gender Information Value Date Recorded Sex Assigned at Not on file Legal Sex Male 4:19 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
--- OUTSIDE RECORDS SUMMARY | 2024-11-26 09:55 | XMS_ITS | Encounter Summary ---
Author Organization [facility] Address [address] [place] [address] Care Team Providers Care Airborne Operations Manager Name Role Phone Johnny Barahona DO Primary Care Provider Viridianaa ble Encounter Details Date Type Department Care Team (Late st Contact Info) Description 02/03/2002 Outpatient Historical [facility] Primary Care - [address] [place] [address] Krzysztof Langston MD [address] [facility] [address] [address] Social History Tobacco Use Types Packs/Day Years Used Date Smoking Tobacco: Never Assessed Sex and Gender Information Value Date Recorded Sex Assigned at Not on file 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
--- OUTSIDE RECORDS SUMMARY | 2024-11-26 09:55 | XMS_ITS | Encounter Summary ---
Author Organization [facility] Address [address] [place] [address] Care Team Providers Care Temple Marker Name Role Phone Johnny Barahona DO Primary Care Provider Viridianaa ble Encounter Details Date Type Department Care Team (Late st Contact Info) Description 12/24/2000 Outpatient Historical [facility] Primary Care - [address] [place] [address] Krzysztof Langston MD [address] [facility] [address] [address] Social History Tobacco Use Types Packs/Day Years Used Date Smoking Tobacco: Never Assessed Sex and Gender Information Value Date Recorded Sex Assigned at Not on file Legal Sex Male 4:19 AM RESIDENCE HALL DIRECTOR Gender Identity Not on file Sexual Orientation Not on file documented as of this encounter Plan of Treatment Not on file documented as of this encounter Visit Diagnoses Not on filedocumented in this encounter Care Teams Temple Marker Relationship Specialty Start Date End Date Johnny Barahona DO PCP - General Family Practice 12/09/12 documented as of this encounter
--- OUTSIDE RECORDS SUMMARY | 2024-11-26 09:55 | XMS_ITS | Encounter Summary ---
Author Organization [facility] Address [address] [place] [address] Care Team Providers Care Senior Environmental Consultant Name Role Phone Johnny Barahona DO Primary Care Provider Viridianaa ble Encounter Details Date Type Department Care Team (Late st Contact Info) Description 02/07/2000 Outpatient Historical [facility] Primary Care - [address] [place] [address] Krzysztof Langston MD [address] [facility] [address] [address] Social History Tobacco Use Types Packs/Day Years Used Date Smoking Tobacco: Never Assessed Sex and Gender Information Value Date Recorded Sex Assigned at Not on file Legal Sex Male 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
--- OUTSIDE RECORDS SUMMARY | 2024-11-26 09:55 | XMS_ITS | Encounter Summary ---
Author Organization [facility] Address [address] [place] [address] Care Team Providers Care Overhead Line Worker Name Role Phone Johnny Barahona DO Primary Care Provider Viridianaa ble Encounter Details Date Type Department Care Team (Late st Contact Info) Description 06/19/[address] 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
--- OUTSIDE RECORDS SUMMARY | 2024-11-26 09:55 | XMS_ITS | Encounter Summary ---
Author Organization [facility] Address 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
--- OUTSIDE RECORDS SUMMARY | 2024-11-26 09:55 | XMS_ITS | Clinical Summary ---
Author Organization [facility] [place] [facility] Address [address] [place] [address] Phone Care Team Providers Care Meat Grinder Name Role Phone Johnny Barahona DO Primary Care Provider Unavaila ble Allergies Active Allergy Reactions Criticality Noted Date Comments No Known Allergies 06/02/2004 Medications levothyroxine 150 mcg Oral tablet Take 150 mcg by mouth daily director of vital statistics. Active TESTOSTERONE (AXIRON TRANSDERMAL) Apply 60 mg [...] on file Legal Sex Male 4:19 AM CENTRAL SUPPLY MANAGER Gender Identity Not on file Sexual Orientation Not on file Occupation Industry Job Start Date Job End Date Not on file Not on file Not on file Not on file Last Filed Vital Signs Vital Sign Reading Time Taken Comments Blood Pressure 125/78 02/04/2013 10:11 AM CENTRAL SUPPLY MANAGER Pulse 6 02/04/2013 10:11 AM CENTRAL SUPPLY MANAGER Temperature 36.9 C (98.4 F) 02/04/2013 10:01 AM CENTRAL SUPPLY MANAGER Respiratory Rate 18 02/04/2013 10:11 AM CENTRAL SUPPLY MANAGER Oxygen Saturation 96% 02/04/2013 10:11 AM CENTRAL SUPPLY MANAGER Inhaled Oxygen Concentration - - Weight 158.8 kg (350 lb) 12/24/2012 2:48 PM CDT Height 189.2 cm (6' 2.5) 12/24/2012 2:48 PM CDT Body Mass Index [...] years 1-dose series) 2019 INFLUENZA VACCINE (#1) 2024 12/09/2002 Insurance [facility] [employer] PPO [id number] Care Teams Meat Grinder Relationship Specialty Start Date End Date Johnny Barahona DO PCP - General Family Practice 12/09/12
--- OUTSIDE RECORDS SUMMARY | 2024-11-26 09:55 | XMS_ITS | Encounter Summary ---
Author Organization [facility] Address [address] [place] [address] Care Team Providers Care Quality Improvement Engineer Name Role Phone Johnny Barahona DO Primary Care Provider Viridianaa ble Encounter Details Date Type Department Care Team (Late st Contact Info) Description 12/06/2004 Outpatient Historical [facility] Primary Care - [address] [place] [address] Krzysztof Langston MD [address] [facility] [address] [address] Social History Tobacco Use Types Packs/Day Years Used Date Smoking Tobacco: Never Assessed Sex and Gender Information Value Date Recorded Sex Assigned at Not on file Legal Sex Male 4:19 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
--- OUTSIDE RECORDS SUMMARY | 2024-11-26 09:55 | XMS_ITS | Encounter Summary ---
Author Organization [employer] Address 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
--- OUTSIDE RECORDS SUMMARY | 2024-11-26 09:55 | XMS_ITS | Encounter Summary ---
Author Organization [facility] Address [address] [place] [address] Care Team Providers Care Feed Mill Supervisor Name Role Phone Johnny Barahona DO Primary Care Provider Viridianaa ble Encounter Details Date Type Department Care Team (Late st Contact Info) Description 04/05/2000 Outpatient Historical [facility] Primary Care - [address] [place] [address] Krzysztof Langston MD [address] [facility] [address] [address] Social History Tobacco Use Types Packs/Day Years Used Date Smoking Tobacco: Never Assessed Sex and Gender Information Value Date Recorded Sex Assigned at Not on file Legal Sex Male 4:19 AM PEDIATRIC LPN Gender Identity Not on file Sexual Orientation Not on file documented as of this encounter Plan of Treatment Not on file documented as of this encounter Visit Diagnoses Not on filedocumented in this encounter Care Teams Feed Mill Supervisor Relationship Specialty Start Date End Date Johnny Barahona DO PCP - General Family Practice 12/09/12 documented as of this encounter
--- OUTSIDE RECORDS SUMMARY | 2024-11-26 09:55 | XMS_ITS | Encounter Summary ---
Author Organization [facility] Address [address] [place] [address] Care Team Providers Care Recruitment Director Name Role Phone Johnny Barahona DO Primary Care Provider Viridianaa ble Encounter Details Date Type Department Care Team (Late st Contact Info) Description 01/23/2001 Outpatient Historical [facility] Primary Care - [address] [place] [address] Krzysztof Langston MD [address] [facility] [address] [address] Social History Tobacco Use Types Packs/Day Years Used Date Smoking Tobacco: Never Assessed Sex and Gender Information Value Date Recorded Sex Assigned at Not on file Legal Sex Male 4:19 AM CERTIFIED SCRUB TECH Gender Identity Not on file Sexual Orientation Not on file documented as of this encounter Plan of Treatment Not on file documented as of this encounter Visit Diagnoses Not on filedocumented in this encounter Care Teams Recruitment Director Relationship Specialty Start Date End Date Johnny Barahona DO PCP - General Family Practice 12/09/12 documented as of this encounter
--- OUTSIDE RECORDS SUMMARY | 2024-11-26 09:55 | XMS_ITS | Encounter Summary ---
Author Organization [employer] Address [address] [place] [address] Care Team Providers Care Electronic Engraver Name Role Phone Johnny Barahona DO Primary Care Provider Grover matute Encounter Details Date Type Department Care Team (Latest Contact Info) Description 12/06/2004 Outpatient Historical [facility] Krzysztof Langston MD [address] [facility] [address] [address] BACKACHE NOS (Primary Dx) Social History Tobacco Use Types Packs/Day Years Used Date Smoking Tobacco: Never Assessed Sex and Gender Information Value Date Recorded Sex Assigned at Not on file Legal Sex Male 4:19 AM COMMISSIONS COORDINATOR Gender Identity Not on file Sexual Orientation Not on file documented as of this encounter Plan of Treatment Not on file documented as of this encounter Visit Diagnoses Diagnosis Backache, unspecified- Primary documented in this encounter Care Teams Electronic Engraver Relationship Specialty Start Date End Date Johnny Barahona DO PCP - General Family Practice 12/09/12 documented as of this encounter
--- OUTSIDE RECORDS SUMMARY | 2024-11-26 09:55 | XMS_ITS | Encounter Summary ---
Author Organization [facility] Address [address] [place] [address] Care Team Providers Care Part Time Receptionist Name Role Phone Johnny Barahona DO Primary Care Provider Viridianaa ble Encounter Details Date Type Department Care Team (Late st Contact Info) Description 10/22/[address] 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
--- OUTSIDE RECORDS SUMMARY | 2024-11-26 09:55 | XMS_ITS | Encounter Summary ---
Author Organization [facility] Address [address] [place] [address] Care Team Providers Care Upper Leather Sorter Name Role Phone Johnny Barahona DO Primary Care Provider Viridianaa ble Encounter Details Date Type Department Care Team (Late st Contact Info) Description 07/03/2001 Outpatient Historical [facility] Primary Care - [address] [place] [address] Krzysztof Langston MD [address] [facility] [address] [address] Social History Tobacco Use Types Packs/Day Years Used Date Smoking Tobacco: Never Assessed Sex and Gender Information Value Date Recorded Sex Assigned at Not on file Legal Sex Male 4:19 AM LOCKET MAKER Gender Identity Not on file Sexual Orientation Not on file documented as of this encounter Plan of Treatment Not on file documented as of this encounter Visit Diagnoses Not on filedocumented in this encounter Care Teams Upper Leather Sorter Relationship Specialty Start Date End Date Johnny Barahona DO PCP - General Family Practice 12/09/12 documented as of this encounter
--- OUTSIDE RECORDS SUMMARY | 2024-11-26 09:55 | XMS_ITS | Encounter Summary ---
Author Organization [employer] Address 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
--- OUTSIDE RECORDS SUMMARY | 2024-11-26 09:55 | XMS_ITS | Encounter Summary ---
Author Organization [facility] Address [address] [place] [address] Care Team Providers Care Security Intelligence Analyst Name Role Phone Johnny Barahona DO Primary Care Provider Viridianaa ble Encounter Details Date Type Department Care Team (Late st Contact Info) Description 03/27/2001 Outpatient Historical [facility] Primary Care - [address] [place] [address] Krzysztof Langston MD [address] [facility] [address] [address] Social History Tobacco Use Types Packs/Day Years Used Date Smoking Tobacco: Never Assessed Sex and Gender Information Value Date Recorded Sex Assigned at Not on file 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
--- OUTSIDE RECORDS SUMMARY | 2024-11-26 09:55 | XMS_ITS | Encounter Summary ---
Author Organization [email or web address] Address 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
--- OUTSIDE RECORDS SUMMARY | 2024-11-26 09:55 | XMS_ITS | Encounter Summary ---
Author Organization [facility] Address [address] [place] [address] Care Team Providers Care Recycle Coordinator Name Role Phone Johnny Barahona DO Primary Care Provider Viridianaa ble Encounter Details Date Type Department Care Team (Late st Contact Info) Description 03/24/2001 Outpatient Historical [facility] Primary Care - [address] [place] [address] Krzysztof Langston MD [address] [facility] [address] [address] Social History Tobacco Use Types Packs/Day Years Used Date Smoking Tobacco: Never Assessed Sex and Gender Information Value Date Recorded Sex Assigned at Not on file 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
--- OUTSIDE RECORDS SUMMARY | 2024-11-26 09:55 | XMS_ITS | Encounter Summary ---
Author Organization Address [address] [place] [address] Care Team Providers Care Racing Manager Name Role Phone Johnny Barahona DO Primary Care Provider Viridianaa ble Encounter Details Date Type Department Care Team (Late st Contact Info) Description 10/01/2000 Outpatient Historical [facility] Primary Care - [address] [place] [address] Krzysztof Langston MD [address] [facility] [address] [address] Social History Tobacco Use Types Packs/Day Years Used Date Smoking Tobacco: Never Assessed Sex and Gender Information Value Date Recorded Sex Assigned at Not on file 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
--- OUTSIDE RECORDS SUMMARY | 2024-11-26 09:55 | XMS_ITS | Encounter Summary ---
Author Organization [facility] Address [address] [place] [address] Care Team Providers Care Paper Coating Machine Operator Name Role Phone Johnny Barahona DO Primary Care Provider Viridianaa ble Encounter Details Date Type Department Care Team (Late st Contact Info) Description 12/06/2004 Outpatient Historical [facility] Primary Care - [address] [place] [address] Krzysztof Langston MD [address] [facility] [address] [address] Social History Tobacco Use Types Packs/Day Years Used Date Smoking Tobacco: Never Assessed Sex and Gender Information Value Date Recorded Sex Assigned at Not on file 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
--- OUTSIDE RECORDS SUMMARY | 2024-11-26 09:55 | XMS_ITS | Encounter Summary ---
Author Organization [facility] Address [address] [place] [address] Care Team Providers Care Dixonac Operator Name Role Phone Johnny Barahona DO Primary Care Provider Viridianaa ble Encounter Details Date Type Department Care Team (Late st Contact Info) Description 07/08/2001 Outpatient Historical [facility] Primary Care - [address] [place] [address] Krzysztof Langston MD [address] [facility] [address] [address] Social History Tobacco Use Types Packs/Day Years Used Date Smoking Tobacco: Never Assessed Sex and Gender Information Value Date Recorded Sex Assigned at Not on file 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
--- OUTSIDE RECORDS SUMMARY | 2024-11-26 09:55 | XMS_ITS | Encounter Summary ---
Author Organization [facility] Address [address] [place] [address] Care Team Providers Care Pm Technician Name Role Phone Johnny Barahona DO Primary Care Provider Viridianaa ble Encounter Details Date Type Department Care Team (Late st Contact Info) Description 11/28/2001 Outpatient Historical [facility] Primary Care - [address] [place] [address] Krzysztof Langston MD [address] [facility] [address] [address] Social History Tobacco Use Types Packs/Day Years Used Date Smoking Tobacco: Never Assessed Sex and Gender Information Value Date Recorded Sex Assigned at Not on file 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
--- OUTSIDE RECORDS SUMMARY | 2024-11-26 09:55 | XMS_ITS | Encounter Summary ---
Author Organization [facility] Address [address] [place] [address] Care Team Providers Care Rn Interventional Name Role Phone Johnny Barahona DO Primary Care Provider Viridianaa ble Encounter Details Date Type Department Care Team (Late st Contact Info) Description 06/03/2001 Outpatient Historical [facility] Primary Care - [address] [place] [address] Krzysztof Langston MD [address] [facility] [address] [address] Social History Tobacco Use Types Packs/Day Years Used Date Smoking Tobacco: Never Assessed Sex and Gender Information Value Date Recorded Sex Assigned at Not on file 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
--- OUTSIDE RECORDS SUMMARY | 2024-11-26 09:55 | XMS_ITS | Encounter Summary ---
Author Organization [facility] Address [address] [place] [address] Care Team Providers Care Oil Expeller Name Role Phone Johnny Barahona DO Primary Care Provider Viridianaa ble Encounter Details Date Type Department Care Team (Late st Contact Info) Description 07/02/2000 Outpatient Historical [facility] Primary Care - [address] [place] [address] Krzysztof Langston MD [address] [facility] [address] [address] Social History Tobacco Use Types Packs/Day Years Used Date Smoking Tobacco: Never Assessed Sex and Gender Information Value Date Recorded Sex Assigned at Not on file 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
--- OUTSIDE RECORDS SUMMARY | 2024-11-26 09:55 | XMS_ITS | Encounter Summary ---
Author Organization [facility] Address [address] [place] [address] Care Team Providers Care Physical Aerodynamicist Name Role Phone Johnny Barahona DO Primary Care Provider Viridianaa ble Encounter Details Date Type Department Care Team (Late st Contact Info) Description 06/04/2000 Outpatient Historical [facility] Primary Care - [address] [place] [address] Krzysztof Langston MD [address] [facility] [address] [address] Social History Tobacco Use Types Packs/Day Years Used Date Smoking Tobacco: Never Assessed Sex and Gender Information Value Date Recorded Sex Assigned at Not on file 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
--- OUTSIDE RECORDS SUMMARY | 2024-11-26 09:55 | XMS_ITS | Clinical Summary ---
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 Gender Identity Not on file Sexual Orientation Not on file Plan of Treatment Health Maintenance Due Date Last Done Comments Hepatitis C Virus (HCV) Screening 1960 TdaP Immunization 1959 Cologuard 2004 Colonoscopy 2004 Colorectal Cancer Screening 2004 Immunochemical Fecal Occult Blood 2004 Zoster Immunization (1 of 2) 2009 Pneumococcal Immunization (50+ years) (3 of 3 - PCV20 or PCV21) 01/05/2023 01/05/2018, 12/31/2016 SARS-COV-2 Immunization ( season) 2023 Influenza Immunization (#1) 2024 09/0 10/2019, 12/02/2018, 01/05/2018, Additional history exists Respiratory Syncytial Virus (RSV) Immunization (Adult) (1 - 1-dose 75+ series) 2034 Pneumococcal Immunization Combined Discontinued 01/05/2018, 12/31/2016 Hepatitis B Immunization Aged Out No longer eligible based on patient's age to complete this topic Human Papillomavirus (HPV) Immunization Aged Out No longer eligible based on patient's age to complete this topic Meningococcal Immunization (ACWY) Aged Out No longer eligible based on patient's age to complete this topic Rotavirus Immunization Aged Out No lo nger eligible based on patient's age to complete this topic
--- OUTSIDE RECORDS SUMMARY | 2024-11-26 09:55 | XMS_ITS | Encounter Summary ---
Author Organization [facility] Address [address] [place] [address] Care Team Providers Care Hr Payroll Coordinator Name Role Phone Johnny Barahona DO Primary Care Provider Viridianaa ble Encounter Details Date Type Department Care Team (Late st Contact Info) Description 09/01/2001 Outpatient Historical [facility] Primary Care - [address] [place] [address] Krzysztof Langston MD [address] [facility] [address] [address] Social History Tobacco Use Types Packs/Day Years Used Date Smoking Tobacco: Never Assessed Sex and Gender Information Value Date Recorded Sex Assigned at Not on file 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
--- OUTSIDE RECORDS SUMMARY | 2024-11-26 09:55 | XMS_ITS | Encounter Summary ---
Author Organization [facility] Address [address] [place] [address] Care Team Providers Care Surveyor Geodetic Name Role Phone Johnny Barahona DO Primary Care Provider Viridianaa ble Encounter Details Date Type Department Care Team (Late st Contact Info) Description 11/13/2002 Outpatient Historical [facility] Primary Care - [address] [place] [phone] Krzysztof Langston MD [address] [facility] [address] [phone] Social History Tobacco Use Types Packs/Day Years Used Date Smoking Tobacco: Never Assessed Sex and Gender Information Value Date Recorded Sex Assigned at Not on file 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
--- OUTSIDE RECORDS SUMMARY | 2024-11-26 09:55 | XMS_ITS | Encounter Summary ---
Author Organization [facility] Address [address] [place] [address] Care Team Providers Care Snowmaker Name Role Phone Johnny Barahona DO Primary Care Provider Viridianaa ble Encounter Details Date Type Department Care Team (Late st Contact Info) Description 02/24/2001 Outpatient Historical [facility] Primary Care - [address] [place] [phone] Krzysztof Langston MD [address] [facility] [address] [phone] Social History Tobacco Use Types Packs/Day Years Used Date Smoking Tobacco: Never Assessed Sex and Gender Information Value Date Recorded Sex Assigned at Not on file 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
--- OUTSIDE RECORDS SUMMARY | 2024-11-26 09:55 | XMS_ITS | Encounter Summary ---
Author Organization [facility] Address [address] [place] [address] Care Team Providers Care Rotary Engine Assembler Name Role Phone Johnny Barahona DO Primary Care Provider Viridianaa ble Encounter Details Date Type Department Care Team (Late st Contact Info) Description 12/06/2004 Outpatient Historical [facility] Primary Care - [address] [place] [phone] Krzysztof Langston MD [address] [facility] [address] [address] Social History Tobacco Use Types Packs/Day Years Used Date Smoking Tobacco: Never Assessed Sex and Gender Information Value Date Recorded Sex Assigned at Not on file 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
--- OUTSIDE RECORDS SUMMARY | 2024-11-26 09:55 | XMS_ITS | Encounter Summary ---
Author Organization [facility] Address [address] [place] [address] Care Team Providers Care It Network Engineer Name Role Phone Johnny Barahona DO Primary Care Provider Viridianaa ble Encounter Details Date Type Department Care Team (Late st Contact Info) Description 07/13/2002 Outpatient Historical [facility] Primary Care - [address] [place] [phone] Krzysztof Langston MD [address] [facility] [address] [phone] Social History Tobacco Use Types Packs/Day Years Used Date Smoking Tobacco: Never Assessed Sex and Gender Information Value Date Recorded Sex Assigned at Not on file 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
[2024-11-26 13:05] LABS: Cholesterol 180 mg/dL (0-200); HDL Direct 79 mg/dL; Triglycerides 105 mg/dL (<150)
[2024-11-26 13:42] LABS: Thyroid Stimulating Hormone 7.330 uIU/mL (0.465-4.680)
[2024-11-27 19:08] LABS: Thyroglobulin by IMA YES YES
== END 2024-11-26 09:28 | disposition home or self-care (01) ==
PROVIDERS: PCP Internal Medicine; Visit Provider Internal Medicine Endocrinology, Diabetes & Metabolism
DX: E03.9 Hypothyroidism, unspecified (principal); E11.9 Type 2 diabetes mellitus without complications
CPT/HCPCS: 36415; 80061; 84432; 84443; 86800